=== PATIENT | male | born 1960 | race Caucasian/White ===

== ENCOUNTER 2016-11-22 08:46 | Inpatient (IN) | payer OTHER ==
[2016-11-22 11:48] VITALS: BMI 27.1
--- NOTE | 2016-11-22 12:54 | HP ---
COWS - Scale Resting Pulse: 0= [place] 80 or Below Sweatin= Chills/Flushing Restless Observation: 3= Extraneous Movement Pupil Size: 2= Moderately Dilated Bone or Joint Aches: 2= Severe Diffuse Aches Runny Nose/ Eye Tearin= Runny Nose/Eyes GI Upset > 30mins: 3= Vomiting/Diarrhea Tremor Observation: 2= Slight Tremor Visible Yawning Observation: 2= >3x During Session Anxiety or Irritability: 2=Irritable/Anxious Goose Flesh Skin: 0=Smooth Skin COWS Score: 19 CIWA Score - CIWA Score Nausea/Vomitin Muscle Tremors: 3 Anxiety: 3 Agitation: 3 Paroxysmal Sweats: 2 Orientation: 0-Oriented Tacttile Disturbances: 2-Mild Itch/Numbness/Burn Auditory Disturbances: 2-Mild Harshness/Frighten Visual Disturbances: 2-Mild Sensitivity Headache: 2-Mild CIWA-Ar Total Score: 22 Admission ROS BHS - HPI Chief Complaint: i need help to stop using heroin,alcohol,and cocaine Allergies/Adverse Reactions: Allergies Allergy/AdvReac Type Severity Reaction Status Date / Time No Known Allergies Allergy Verified 11/22/16 11:21 History of Present Illness: this 56 years old with heroin,alcohol,street methadone,alcohol,seeking detox, last treatment [facility] 04/19 completed nicotine dependence weight loss anxiety and depression no significant period of sobriety Exam Limitations: No Limitations - Ebola screening Have you traveled outside of the country in the last 21 days: No Have you had contact with anyone from an Ebola affected area: No Have you been sick,other than usual withdrawal symptoms: No - Review of Systems Constitutional: Chills, Diaphoresis, Loss of Appetite, Malaise, Night Sweats, Changes in sleep, Weakness, Unintentional Wgt. Loss EENT: reports: Tearing, Nose Congestion Respiratory: reports: No Symptoms reported Cardiac: reports: No Symptoms Reported GI: reports: Diarrhea, Nausea, Vomiting, Abdominal cramping : reports: No Symptoms Reported Musculoskeletal: reports: Back Pain, Joint Pain, Muscle Pain, Joint Stiffness Integumentary: reports: Dryness Neuro: reports: Headache, Tremors Endocrine: reports: No Symptoms Reported Hematology: reports: Bleeding Diathesis Psychiatric: reports: Anxious, Depressed Patient History - Patient Medical History Hx Anemia: No Hx Asthma: Yes (on albuterol inhaler) Hx Chronic Obstructive Pulmonary Disease (COPD): No Hx Cancer: No Hx Cardiac Disorders: No Hx Congestive Heart Failure: No Hx Hypertension: No Hx Hypercholesterolemia: No Hx Pacemaker: No HX Cerebrovascular Accident: No Hx Seizures: No Hx Dementia: No Hx Diabetes: No Hx Gastrointestinal Disorders: No Hx Liver Disease: No Hx Genitourinary Disorders: No Hx Sexually Transmitted Disorders: No Hx Renal Disease (ESRD): No Hx Thyroid Disease: No Hx Human Immunodeficiency Virus (HIV): No (last 2015) Hx Hepatitis C: No Hx Depression: No Hx Suicide Attempt: No Hx Schizophrenia: No Other Medical History: no suicidal,no homicidal - Patient Surgical History Past Surgical History: Yes Hx Neurologic Surgery: No Hx Cataract Extraction: No Hx Cardiac Surgery: No Hx Lung Surgery: No Hx Breast Surgery: No Hx Breast Biopsy: No Hx Abdominal Surgery: No Hx Appendectomy: No Hx Cholecystectomy: No Hx Genitourinary Surgery: No Hx Section: No Hx Orthopedic Surgery: Yes (dislocation, left rotator cuff in 2007) Anesthesia Reaction: No - PPD History Previous Implant?: Yes Documented Results: Negative w/o proof Implanted On Prior R Admission?: No PPD to be Administered?: Yes - Smoking Cessation Smoking history: Current every day smoker Have you smoked in the past 12 months: Yes Aproximately how many cigarettes per day: 30 Hx Chewing Tobacco Use: No Initiated information on smoking cessation: Yes 'Breaking Loose' booklet given: 11/22/16 - Substance & Tx. History Hx Alcohol Use: Yes Hx Substance Use: Yes Substance Use Type: Alcohol, Cocaine, Heroin Hx Substance Use Treatment: Yes (2015 [facility] 04/19) - Substances Abused Heroin Route: Inhalation Frequency: Daily Amount used: 20-25 bags Age of first use: 20 Date of Last Use: 11/21/16 Crack Route: Smoking Frequency: Daily Amount used: $300 Age of first use: 32 Date of Last Use: 11/21/16 Alcohol-vodka/beer Route: Oral Frequency: Daily Amount used: 2-3 pts./2-6 pks. Age of first use: 20 Date of Last Use: 11/22/16 street methadone Route: Oral Frequency: 1-3 times last 30 days Amount used: 80 mg. Age of first use: 55 Date of Last Use: 11/21/16 Family Disease History - Family Disease History Family History: Denies Admission Physical Exam [facility] - Vital Signs Vital Signs: Vital Signs - 24 hr 11/22/16 11:45 Temperature 98.5 F Pulse Rate 62 Respiratory 18 Rate Blood Pressure 125/76 - Physical General Appearance: Yes: Moderate Distress, Tremorous, Irritable, Sweating, Anxious HEENTM: Yes: Hearing grossly Normal, Normal ENT Inspection, Pharynx Normal Respiratory: Yes: Lungs Clear, Normal Breath Sounds, No Respiratory Distress Neck: Yes: Within Normal Limits Breast: Yes: Within Normal Limits Cardiology: Yes: Within Normal Limits, Regular Rate, S1, S2 Abdominal: Yes: Within Normal Limits, Normal Bowel Sounds, Non Tender, Flat, Soft Genitourinary: Yes: Within Normal Limits Back: Yes: Within Normal Limits, Normal Inspection, Muscle Spasm Musculoskeletal: Yes: full range of Motion, Back pain, Joint Stiffness, Muscle Pain Extremities: Yes: Normal Capillary Refill, Normal Range of Motion, Tremors Neurological: Yes: secretary administrative assistant II-XII NML intact, Alert, Motor Strength 5/5 Integumentary: Yes: Dry Lymphatic: Yes: Within Normal Limits - Diagnostic (1) Opioid dependence with withdrawal Current Visit: Yes Status: Acute (2) Alcohol dependence with uncomplicated withdrawal Current Visit: Yes Status: Acute (3) Cocaine dependence Current Visit: Yes Status: Acute (4) Anxiety and depression Current Visit: Yes Status: Acute (5) Nicotine dependence Current Visit: Yes Status: Acute (6) Weight loss Current Visit: Yes Status: Chronic (7) Asthma Current Visit: Yes Status: Chronic Cleared for Admission [facility] - Detox or Rehab [facility] Level of Care: Medically Managed Detox Regimen/Protocol: Methadone/Librium [facility] Breath Alcohol Content Breath Alcohol Content: 0 Urine Drug Screen - Results Drug Screen Negative: No Urine Drug Screen Results: RUSSELL-Cocaine, OPI-Opiates, MTD-Methadone
[2016-11-22] MEDS ORDERED: P-EPHED 60MG/TRIPROLIDI 2.5MG TABLET PO PRN (13:06)
[2016-11-22] MEDS ORDERED: MENTHOL/PHENOL 1 EACH UD MM PRN (13:06)
[2016-11-22] MEDS ORDERED: MAG HYDROX/AL HYDROX/SIMETH 30 ML UNIT-DOSE CUP PO PRN (13:06)
[2016-11-22] MEDS ORDERED: chlordiazePOXIDE HCL 25 MG CAPSULE PO PRN (13:06)
[2016-11-22] MEDS ORDERED: NICOTINE POLACRILEX 2 MG GUM BC PRN (13:06)
[2016-11-22] MEDS ORDERED: MAGNESIUM CITRATE 300 ML BOTTLE PO PRN (13:06)
[2016-11-22] MEDS ORDERED: IBUPROFEN 400 MG TABLET (FP) PO PRN (13:06)
[2016-11-22] MEDS ORDERED: guaiFENesin/D-METHORPHAN HB 10 ML UNIT-DOSE CUPS PO PRN (13:06)
[2016-11-22] MEDS ORDERED: MAGNESIUM HYDROX 2400MG/30ML ORAL SUSPENSION 30 ML CUP PO PRN (13:06)
[2016-11-22] MEDS ORDERED: LOPERAMIDE HCL 2 MG CAPSULE PO PRN (13:06)
[2016-11-22] MEDS ORDERED: ACETAMINOPHEN 325 MG TABLET (FP) PO PRN (13:06)
[2016-11-22] MEDS: CYCLOBENZAPRINE HCL 10 MG TABLET (FP) PO PRN (13:44)
[2016-11-22] MEDS ORDERED: chlordiazePOXIDE HCL 25 MG CAPSULE PO ONE (13:45)
[2016-11-22] MEDS ORDERED: METHADONE HCL 10 MG TABLET (FOR DETOX USE ONLY) PO ONE ×2 (13:45→23:00)
[2016-11-22] MEDS: NICOTINE 21 MG/24 HOURS TOPICAL PATCH TD SCH (13:48)
[2016-11-22] MEDS: chlordiazePOXIDE HCL 25 MG CAPSULE PO SCH ×2 (17:57→22:10)
[2016-11-22 17:59] LABS: URINE APPEARANCE CLEAR; URINE BILIRUBIN NEGATIVE (NEGATIVE); URINE BLOOD 1+ (NEGATIVE); URINE COLOR YELLOW; URINE GLUCOSE (UA) NEGATIVE (NEGATIVE); URINE KETONE NEGATIVE (NEGATIVE); URINE LEUK ESTERASE NEGATIVE (NEGATIVE); URINE NITRITE NEGATIVE (NEGATIVE); URINE PROTEIN NEGATIVE (NEGATIVE); URINE UROBILINOGEN NEGATIVE mg/dL (0.2-1.0)
[2016-11-22 19:17] LABS: CALCIUM OXALATE CRYSTALS RARE /hpf (NONE SEEN); URINE MUCUS RARE; URINE RBC 3 /hpf (0-3); URINE WBC 1 /hpf (3-5)
[2016-11-22 20:59] LABS: HIV 1 & 2 AB NEGATIVE; HIV 1 AGp24 NEGATIVE
[2016-11-22] MEDS: THIAMINE HCL 100 MG TABLET (FP) PO SCH (22:09)
[2016-11-22] MEDS: cloNIDine HCL 0.1 MG TABLET PO SCH (22:09)
[2016-11-22] MEDS: diphenhydrAMINE HCL 50 MG CAPSULE PO PRN (22:11)
[2016-11-23] MEDS: chlordiazePOXIDE HCL 25 MG CAPSULE PO SCH ×4 (05:58→22:25)
[2016-11-23] MEDS: CYCLOBENZAPRINE HCL 10 MG TABLET (FP) PO PRN (05:58)
[2016-11-23] MEDS ORDERED: METHADONE HCL 10 MG TABLET (FOR DETOX USE ONLY) PO SCH (10:00)
[2016-11-23] MEDS: PRENATAL VITAMINS W/ FOLIC ACID TABLET (FP) PO SCH (10:08)
[2016-11-23] MEDS: cloNIDine HCL 0.1 MG TABLET PO SCH ×2 (10:08→22:26)
[2016-11-23] MEDS: NICOTINE 21 MG/24 HOURS TOPICAL PATCH TD SCH (10:08)
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
[2016-11-23 10:59] LABS: ALBUMIN 3.7 g/dl (3.4-5.0); ANION GAP 7 (8-16); CALCIUM 8.9 mg/dL (8.5-10.1); CO2 27 mmol/L (21-32); GLUCOSE,RANDOM 86 mg/dL (74-106)
[2016-11-23 11:01] LABS: ALK PHOS 90 U/L (45-117); BILIRUBIN,TOTAL 0.5 mg/dL (0.2-1.0); CREATININE 1.4 mg/dL (0.7-1.3); MCH 31.4 pg (25.7-33.7); MCHC 33.5 g/dl (32.0-35.9); MEAN CELL VOLUME 93.7 fl (80-96); MEAN PLT VOLUME 8.3 fl (7.5-11.1); PLATELET COUNT 278 K/MM3 (134-434); RDW 13.6 % (11.9-15.9); SGOT/AST 20 U/L (15-37); SGPT/ALT 21 U/L (12-78); TOT PROT 7.1 g/dl (6.4-8.2); WHITE BLOOD COUNT 10.9 K/mm3 (4.0-10.0)
--- NOTE | 2016-11-23 15:32 | PN ---
S CIWA - CIWA Score Nausea/Vomitin-Int. Nausea w/Dry Heave Muscle Tremors: 3 Anxiety: 3 Agitation: 1-Slight > Activity Paroxysmal Sweats: 3 Orientation: 0-Oriented Tacttile Disturbances: 2-Mild Itch/Numbness/Burn Auditory Disturbances: 0-None Visual Disturbances: 0-None Headache: 3-Moderate CIWA-Ar Total Score: 19 BHS COWS - Scale Resting Pulse: 0= [place] 80 or Below Sweatin= Chills/Flushing Restless Observation: 1= Difficult to Sit Still Pupil Size: 0= Normal to Room Light Bone or Joint Aches: 2= Severe Diffuse Aches Runny Nose/ Eye Tearin= Nasal Congestion GI Upset > 30mins: 2= Nausea/Diarrhea Tremor Observation of Outstretched Hands: 2= Slight Tremor Visible Yawning Observation: 2= >3x During Session Anxiety or Irritability: 2=Irritable/Anxious Goose Flesh Skin: 0=Smooth Skin COWS Score: 13 BHS Progress Note (SOAP) Subjective: Interrupted sleep, Diarrhea, Stomach Cramping, H/A, Body Aches, Sweating, Tremors. Objective: PT. A & O X 3. NO ACUTE DISTRESS. PT. DENIES CHEST PAIN. 11/23/16 15:29 Vital Signs Temperature 97.6 F 11/23/16 10:00 Pulse Rate 59 L 11/23/16 10:00 Respiratory Rate 19 11/23/16 10:00 Blood Pressure 129/81 11/23/16 10:00 O2 Sat by Pulse Oximetry (%) Laboratory Tests 11/22/16 11/22/16 11/23/16 13:20 15:00 06:00 WBC 10.9 H RBC 4.40 Hgb 13.8 Hct 41.2 MCV 93.7 MCH 31.4 MCHC 33.5 RDW 13.6 Plt Count 278 MPV 8.3 Sodium Potassium Chloride Carbon Dioxide Anion Gap BUN Creatinine Creat Clearance w eGFR Random Glucose Calcium Total Bilirubin AST ALT Alkaline Phosphatase Total Protein Albumin Urine Color Yellow Urine Appearance Clear Urine pH 5.0 Ur Specific [place] >= 1.030 H Urine Protein Negative Urine Glucose (UA) Negative Urine Ketones Negative Urine Blood 1+ H Urine Nitrite Negative Urine Bilirubin Negative Urine Urobilinogen Negative Ur Leukocyte Esterase Negative Urine RBC 3 Urine WBC 1 Calcium Oxalate Crystal Rare Urine Mucus Rare RPR Titer HIV 1&2 Antibody Screen Negative HIV P24 Antigen Negative 11/23/16 11/23/16 06:00 06:00 WBC RBC Hgb Hct MCV MCH MCHC RDW Plt Count MPV Sodium 139 Potassium 4.6 Chloride 105 Carbon Dioxide 27 Anion Gap 7 L BUN 21 H Creatinine 1.4 H Creat Clearance w eGFR 52.81 Random Glucose 86 Calcium 8.9 Total Bilirubin 0.5 AST 20 ALT 21 Alkaline Phosphatase 90 Total Protein 7.1 Albumin 3.7 Urine Color Urine Appearance Urine pH Ur Specific [place] Urine Protein Urine Glucose (UA) Urine Ketones Urine Blood Urine Nitrite Urine Bilirubin Urine Urobilinogen Ur Leukocyte Esterase Urine RBC Urine WBC Calcium Oxalate Crystal Urine Mucus RPR Titer Nonreactive HIV 1&2 Antibody Screen HIV P24 Antigen LABS NOTED. HCV ANTIBODY RESULT PENDING. 11/23/16 15:31 Assessment: 11/23/16 15:30 WITHDRAWAL SYMPTOMS. Plan: CONTINUE DETOX. D/C MAGNESIUM-CONTAINING MEDS.
[2016-11-23] MEDS: THIAMINE HCL 100 MG TABLET (FP) PO SCH (22:23)
[2016-11-23] MEDS: QUEtiapine FUMARATE 50 MG TABLET PO SCH (22:25)
[2016-11-24] MEDS: chlordiazePOXIDE HCL 25 MG CAPSULE PO SCH ×2 (05:46→10:15)
[2016-11-24] MEDS: PRENATAL VITAMINS W/ FOLIC ACID TABLET (FP) PO SCH (10:14)
[2016-11-24] MEDS: cloNIDine HCL 0.1 MG TABLET PO SCH ×2 (10:14→22:10)
[2016-11-24] MEDS: NICOTINE 21 MG/24 HOURS TOPICAL PATCH TD SCH (10:15)
[2016-11-24] MEDS: METHADONE HCL 5 MG TABLET (FOR DETOX USE ONLY) PO SCH (10:15)
--- NOTE | 2016-11-24 15:38 | PN ---
S CIWA - CIWA Score Nausea/Vomitin Muscle Tremors: 4-Moderate,w/Arms Extend Anxiety: 4-Mod. Anxious/Guarded Agitation: 4-Moderately Restless Paroxysmal Sweats: No Perspiration Orientation: 0-Oriented Tacttile Disturbances: 0-None Auditory Disturbances: 0-None Visual Disturbances: 0-None Headache: 1-Very Mild CIWA-Ar Total Score: 16 BHS COWS - Scale Resting Pulse: 0= [place] 80 or Below Sweatin=Flushed/Facial Moisture Restless Observation: 3= Extraneous Movement Pupil Size: 0= Normal to Room Light Bone or Joint Aches: 2= Severe Diffuse Aches Runny Nose/ Eye Tearin= Runny Nose/Eyes GI Upset > 30mins: 3= Vomiting/Diarrhea Tremor Observation of Outstretched Hands: 2= Slight Tremor Visible Yawning Observation: 1= 1-2x During Session Anxiety or Irritability: 2=Irritable/Anxious Goose Flesh Skin: 0=Smooth Skin COWS Score: 17 [facility] Progress Note (SOAP) Subjective: Nausea, sweating, tremor, anxious, interrupted sleep, diarrhea, body aches Objective: 11/24/16 15:36 Last Vital Signs Temp Pulse Resp BP Pulse Ox 96.4 F L 68 20 122/82 11/24/16 10:00 11/24/16 10:00 11/24/16 10:00 11/24/16 10:00 Laboratory Tests 11/22/16 11/22/16 11/23/16 13:20 15:00 06:00 WBC 10.9 H RBC 4.40 Hgb 13.8 Hct 41.2 MCV 93.7 MCH 31.4 MCHC 33.5 RDW 13.6 Plt Count 278 MPV 8.3 Sodium Potassium Chloride Carbon Dioxide Anion Gap BUN Creatinine Creat Clearance w eGFR Random Glucose Calcium Total Bilirubin AST ALT Alkaline Phosphatase Total Protein Albumin Urine Color Yellow Urine Appearance Clear Urine pH 5.0 Ur Specific [place] >= 1.030 H Urine Protein Negative Urine Glucose (UA) Negative Urine Ketones Negative Urine Blood 1+ H Urine Nitrite Negative Urine Bilirubin Negative Urine Urobilinogen Negative Ur Leukocyte Esterase Negative Urine RBC 3 Urine WBC 1 Calcium Oxalate Crystal Rare Urine Mucus Rare RPR Titer Hepatitis C Antibody HIV 1&2 Antibody Screen Negative HIV P24 Antigen Negative 11/23/16 11/23/16 11/23/16 06:00 06:00 06:00 WBC RBC Hgb Hct MCV MCH MCHC RDW Plt Count MPV Sodium 139 Potassium 4.6 Chloride 105 Carbon Dioxide 27 Anion Gap 7 L BUN 21 H Creatinine 1.4 H Creat Clearance w eGFR 52.81 Random Glucose 86 Calcium 8.9 Total Bilirubin 0.5 AST 20 ALT 21 Alkaline Phosphatase 90 Total Protein 7.1 Albumin 3.7 Urine Color Urine Appearance Urine pH Ur Specific [place] Urine Protein Urine Glucose (UA) Urine Ketones Urine Blood Urine Nitrite Urine Bilirubin Urine Urobilinogen Ur Leukocyte Esterase Urine RBC Urine WBC Calcium Oxalate Crystal Urine Mucus RPR Titer Nonreactive Hepatitis C Antibody <0.1 HIV 1&2 Antibody Screen HIV P24 Antigen Labs noted: BUN 21, serum creatinine 1.4, UA: 1+ blood Assessment: 11/24/16 15:38 Withdrawal symptoms Noted with prerenal azotemia Plan: Continue detox Prerenal azotemia: encouraged to drink lots of water, water pitcher ordered, repeat BMP Microscopic hematuria: repeat UA
[2016-11-24] MEDS: chlordiazePOXIDE 5 MG CAPSULE PO SCH ×2 (17:30→22:11)
[2016-11-24] MEDS ORDERED: ZOLPIDEM TARTRATE 5 MG TABLET PO PRN (22:00)
[2016-11-24] MEDS: QUEtiapine FUMARATE 50 MG TABLET PO SCH (22:10)
[2016-11-24] MEDS: THIAMINE HCL 100 MG TABLET (FP) PO SCH (22:11)
[2016-11-25] MEDS: chlordiazePOXIDE 5 MG CAPSULE PO SCH ×2 (06:00→10:06)
[2016-11-25] MEDS: cloNIDine HCL 0.1 MG TABLET PO SCH ×2 (10:06→22:07)
[2016-11-25] MEDS: PRENATAL VITAMINS W/ FOLIC ACID TABLET (FP) PO SCH (10:06)
[2016-11-25] MEDS: METHADONE HCL 5 MG TABLET (FOR DETOX USE ONLY) PO SCH (10:06)
[2016-11-25] MEDS: NICOTINE 21 MG/24 HOURS TOPICAL PATCH TD SCH (10:06)
[2016-11-25 10:11] LABS: ANION GAP 7 (8-16); CALCIUM 8.7 mg/dL (8.5-10.1); CO2 27 mmol/L (21-32); GLUCOSE,RANDOM 97 mg/dL (74-106)
[2016-11-25] MEDS ORDERED: ALBUTEROL SO4 6.7 GM HFA INHALER IH PRN (11:06)
--- NOTE | 2016-11-25 11:09 | PN ---
BHS Progress Note (SOAP) Subjective: Sweating,interrupted sleep,restless Objective: 11/25/16 11:08 Vital Signs - 8 hr 11/25/16 11/25/16 11/25/16 03:32 06:51 09:27 Temperature 97.7 F 96.0 F L Pulse Rate 64 59 L Respiratory 18 18 18 Rate Blood Pressure 124/84 125/82 Laboratory Tests 11/22/16 11/22/16 11/23/16 13:20 15:00 06:00 WBC 10.9 H RBC 4.40 Hgb 13.8 Hct 41.2 MCV 93.7 MCH 31.4 MCHC 33.5 RDW 13.6 Plt Count 278 MPV 8.3 Sodium Potassium Chloride Carbon Dioxide Anion Gap BUN Creatinine Creat Clearance w eGFR Random Glucose Calcium Total Bilirubin AST ALT Alkaline Phosphatase Total Protein Albumin Urine Color Yellow Urine Appearance Clear Urine pH 5.0 Ur Specific [place] >= 1.030 H Urine Protein Negative Urine Glucose (UA) Negative Urine Ketones Negative Urine Blood 1+ H Urine Nitrite Negative Urine Bilirubin Negative Urine Urobilinogen Negative Ur Leukocyte Esterase Negative Urine RBC 3 Urine WBC 1 Calcium Oxalate Crystal Rare Urine Mucus Rare RPR Titer Hepatitis C Antibody HIV 1&2 Antibody Screen Negative HIV P24 Antigen Negative 11/23/16 11/23/16 11/23/16 06:00 06:00 06:00 WBC RBC Hgb Hct MCV MCH MCHC RDW Plt Count MPV Sodium 139 Potassium 4.6 Chloride 105 Carbon Dioxide 27 Anion Gap 7 L BUN 21 H Creatinine 1.4 H Creat Clearance w eGFR 52.81 Random Glucose 86 Calcium 8.9 Total Bilirubin 0.5 AST 20 ALT 21 Alkaline Phosphatase 90 Total Protein 7.1 Albumin 3.7 Urine Color Urine Appearance Urine pH Ur Specific [place] Urine Protein Urine Glucose (UA) Urine Ketones Urine Blood Urine Nitrite Urine Bilirubin Urine Urobilinogen Ur Leukocyte Esterase Urine RBC Urine WBC Calcium Oxalate Crystal Urine Mucus RPR Titer Nonreactive Hepatitis C Antibody <0.1 HIV 1&2 Antibody Screen HIV P24 Antigen 11/25/16 06:30 WBC RBC Hgb Hct MCV MCH MCHC RDW Plt Count MPV Sodium 140 Potassium 4.0 Chloride 106 Carbon Dioxide 27 Anion Gap 7 L BUN 15 D Creatinine 1.0 D Creat Clearance w eGFR Random Glucose 97 Calcium 8.7 Total Bilirubin AST ALT Alkaline Phosphatase Total Protein Albumin Urine Color Urine Appearance Urine pH Ur Specific [place] Urine Protein Urine Glucose (UA) Urine Ketones Urine Blood Urine Nitrite Urine Bilirubin Urine Urobilinogen Ur Leukocyte Esterase Urine RBC Urine WBC Calcium Oxalate Crystal Urine Mucus RPR Titer Hepatitis C Antibody HIV 1&2 Antibody Screen HIV P24 Antigen labs noted Assessment: 11/25/16 11:09 Withdrawal sx. Plan: Continue detox
--- NOTE | 2016-11-25 12:03 | EKG ---
Test Reason : Blood Pressure : / mmHG Vent. Rate : 059 BPM Atrial Rate : 059 BPM P-R Int : 180 ms QRS Dur : 088 ms QT Int : 402 ms P-R-T Axes : 059 040 040 degrees QTc Int : 397 ms SINUS BRADYCARDIA OTHERWISE NORMAL ECG NO PREVIOUS ECGS AVAILABLE Confirmed by ADARSH WARE MD ([id number]) on 11/25/2016 12:03:27 PM Referred By: Confirmed By:ADARSH WARE MD
[2016-11-25] MEDS: chlordiazePOXIDE HCL 10 MG CAPSULE PO SCH ×2 (17:18→22:07)
[2016-11-25 17:39] LABS: URINE APPEARANCE CLEAR; URINE BILIRUBIN NEGATIVE (NEGATIVE); URINE BLOOD NEGATIVE (NEGATIVE); URINE COLOR LTYELLOW; URINE GLUCOSE (UA) NEGATIVE (NEGATIVE); URINE KETONE NEGATIVE (NEGATIVE); URINE LEUK ESTERASE NEGATIVE (NEGATIVE); URINE NITRITE NEGATIVE (NEGATIVE); URINE PROTEIN NEGATIVE (NEGATIVE); URINE UROBILINOGEN NEGATIVE mg/dL (0.2-1.0)
[2016-11-25] MEDS: QUEtiapine FUMARATE 50 MG TABLET PO SCH (22:07)
[2016-11-25] MEDS: diphenhydrAMINE HCL 50 MG CAPSULE PO PRN (22:07)
[2016-11-25] MEDS: THIAMINE HCL 100 MG TABLET (FP) PO SCH (22:58)
[2016-11-26] MEDS: chlordiazePOXIDE HCL 10 MG CAPSULE PO SCH ×2 (06:13→10:09)
[2016-11-26] MEDS ORDERED: METHADONE HCL 10 MG TABLET (FOR DETOX USE ONLY) PO SCH (10:00)
[2016-11-26] MEDS: PRENATAL VITAMINS W/ FOLIC ACID TABLET (FP) PO SCH (10:08)
[2016-11-26] MEDS: NICOTINE 21 MG/24 HOURS TOPICAL PATCH TD SCH (10:08)
[2016-11-26] MEDS: cloNIDine HCL 0.1 MG TABLET PO SCH ×2 (10:09→22:39)
--- NOTE | 2016-11-26 10:32 | PN ---
BHS Progress Note (SOAP) Subjective: Sweating,interrupted sleep,restless. Objective: 11/26/16 10:31 Vital Signs - 8 hr 11/26/16 11/26/16 11/26/16 03:28 06:46 09:24 Temperature 97.3 F L 97.2 F L Pulse Rate 62 61 Respiratory 18 16 16 Rate Blood Pressure 117/79 127/78 Assessment: 11/26/16 10:31 Withdrawal sx. Plan: Continue detox
[2016-11-26] MEDS: RANITIDINE HCL 150 MG TABLET (FP) PO SCH (21:10)
[2016-11-26] MEDS: THIAMINE HCL 100 MG TABLET (FP) PO SCH (22:39)
[2016-11-26] MEDS: QUEtiapine FUMARATE 50 MG TABLET PO SCH (22:39)
[2016-11-26] MEDS: diphenhydrAMINE HCL 50 MG CAPSULE PO PRN (22:39)
[2016-11-27] MEDS ORDERED: METHADONE HCL 5 MG TABLET (FOR DETOX USE ONLY) PO SCH (06:00)
[2016-11-27 09:41] VITALS: BP 102/69; PULSE 85; TEMP 97.8
[2016-11-27] MEDS: RANITIDINE HCL 150 MG TABLET (FP) PO SCH (10:09)
[2016-11-27] MEDS: NICOTINE 21 MG/24 HOURS TOPICAL PATCH TD SCH (10:09)
[2016-11-27] MEDS: PRENATAL VITAMINS W/ FOLIC ACID TABLET (FP) PO SCH (10:09)
[2016-11-27] MEDS: cloNIDine HCL 0.1 MG TABLET PO SCH (10:09)
--- NOTE | 2016-11-27 14:15 | DS ---
[facility] Detox Discharge Summary Admission Date: 11/22/16 Discharge Date: 11/27/16 - History Present History: Alcohol Dependence, Cocaine Dependence, Opioid Dependence Pertinent Past History: Asthma - Physical Exam Results Vital Signs: Vital Signs Temperature 97.8 F 11/27/16 09:41 Pulse Rate 85 11/27/16 09:41 Respiratory Rate 18 11/27/16 09:41 Blood Pressure 102/69 11/27/16 09:41 O2 Sat by Pulse Oximetry (%) Pertinent Admission Physical Exam Findings: Withdrawal sx. Laboratory Last Values WBC 10.9 K/mm3 (4.0-10.0) H 11/23/16 06:00 RBC 4.40 M/mm3 (4.00-5.60) 11/23/16 06:00 Hgb 13.8 GM/dL (11.7-16.9) 11/23/16 06:00 Hct 41.2 % (35.4-49) 11/23/16 06:00 MCV 93.7 fl (80-96) 11/23/16 06:00 MCH 31.4 pg (25.7-33.7) 11/23/16 06:00 MCHC 33.5 g/dl (32.0-35.9) 11/23/16 06:00 RDW 13.6 % (11.9-15.9) 11/23/16 06:00 Plt Count 278 K/MM3 (134-434) 11/23/16 06:00 MPV 8.3 fl (7.5-11.1) 11/23/16 06:00 Sodium 140 mmol/L (136-145) 11/25/16 06:30 Potassium 4.0 mmol/L (3.5-5.1) 11/25/16 06:30 Chloride 106 mmol/L (98-107) 11/25/16 06:30 Carbon Dioxide 27 mmol/L (21-32) 11/25/16 06:30 Anion Gap 7 (8-16) L 11/25/16 06:30 BUN 15 mg/dL (7-18) D 11/25/16 06:30 Creatinine 1.0 mg/dL (0.7-1.3) D 11/25/16 06:30 Creat Clearance w eGFR 52.81 (>60) 11/23/16 06:00 Random Glucose 97 mg/dL (74-106) 11/25/16 06:30 Calcium 8.7 mg/dL (8.5-10.1) 11/25/16 06:30 Total Bilirubin 0.5 mg/dL (0.2-1.0) 11/23/16 06:00 AST 20 U/L (15-37) 11/23/16 06:00 ALT 21 U/L (12-78) 11/23/16 06:00 Alkaline Phosphatase 90 U/L (45-117) 11/23/16 06:00 Total Protein 7.1 g/dl (6.4-8.2) 11/23/16 06:00 Albumin 3.7 g/dl (3.4-5.0) 11/23/16 06:00 Urine Color Lty[place] 11/25/16 13:10 Urine Appearance Clear 11/25/16 13:10 Urine pH 5.0 (5.0-8.0) 11/25/16 13:10 Ur Specific [place] 1.015 (1.005-1.025) 11/25/16 13:10 Urine Protein Negative (NEGATIVE) 11/25/16 13:10 Urine Glucose (UA) Negative (NEGATIVE) 11/25/16 13:10 Urine Ketones Negative (NEGATIVE) 11/25/16 13:10 Urine Blood Negative (NEGATIVE) 11/25/16 13:10 Urine Nitrite Negative (NEGATIVE) 11/25/16 13:10 Urine Bilirubin Negative (NEGATIVE) 11/25/16 13:10 Urine Urobilinogen Negative mg/dL (0.2-1.0) 11/25/16 13:10 Ur Leukocyte Esterase Negative (NEGATIVE) 11/25/16 13:10 Urine RBC 3 /hpf (0-3) 11/22/16 15:00 Urine WBC 1 /hpf (3-5) 11/22/16 15:00 Calcium Oxalate Crystal Rare /hpf (NONE SEEN) 11/22/16 15:00 Urine Mucus Rare 11/22/16 15:00 RPR Titer Nonreactive (NONREACTIVE) 11/23/16 06:00 Hepatitis C Antibody <0.1 s/co ratio (0.0-0.9) 11/23/16 06:00 HIV 1&2 Antibody Screen Negative 11/22/16 13:20 HIV P24 Antigen Negative 11/22/16 13:20 labs noted - Treatment Hospital Course: Detox Protocol Followed, Detoxed Safely, Responded well, Discharged Condition Good, Rehab Referral Accepted Patient has Accepted a Rehab Referral to: [facility] - Medication Discharge Medications: Ambulatory Orders Albuterol Sulfate Inhaler - [Ventolin Hfa Inhaler -] 2 inh PO Q4H PRN 11/22/16 Quetiapine Fumarate [Seroquel -] 50 mg PO HS #30 tablet 11/23/16 - Diagnosis (1) Alcohol dependence with uncomplicated withdrawal Current Visit: Yes Status: Acute (2) Cocaine dependence Current Visit: Yes Status: Acute Qualifiers: Substance use status: uncomplicated Qualified Code(s): F14.20 - Cocaine dependence, uncomplicated (3) Insomnia Current Visit: Yes Status: Acute (4) Nicotine dependence Current Visit: Yes Status: Acute Qualifiers: Nicotine product type: cigarettes Substance use status: uncomplicated Qualified Code(s): F17.210 - Nicotine dependence, cigarettes, uncomplicated (5) Opioid dependence with withdrawal Current Visit: Yes Status: Acute (6) Substance induced mood disorder Current Visit: Yes Status: Acute (7) Asthma Current Visit: Yes Status: Chronic Qualifiers: Asthma severity: mild intermittent Asthma complication type: uncomplicated Qualified Code(s): J45.20 - Mild intermittent asthma, uncomplicated - AMA Did Patient Leave Against Medical Advice: No
== END 2016-11-27 11:20 | disposition home or self-care (01) | DRG 897 ==
LOC: YASAS 08:46 → Y3N 12:21
PROVIDERS: ADMIT Internal Medicine Addiction Medicine; ATTEND Internal Medicine Addiction Medicine
PROC: HZ2ZZZZ Detoxification Services for Substance Abuse Treatment (ICD-10-PCS; principal; 2016-11-22)
DX: F11.23 Opioid dependence with withdrawal (principal); F14.20 Cocaine dependence, uncomplicated; F10.230 Alcohol dependence with withdrawal, uncomplicated; F17.210 Nicotine dependence, cigarettes, uncomplicated; F19.24 Other psychoactive substance dependence with psychoactive substance-induced mood disorder; G47.00 Insomnia, unspecified; J45.20 Mild intermittent asthma, uncomplicated; R79.89 Other specified abnormal findings of blood chemistry; Z87.898 Personal history of other specified conditions
CPT/HCPCS: 36415; 80048; 80053; 81003; 81015; 85027; 86593; 86803; 87389; 93005; 93010

== ENCOUNTER 2017-10-15 12:58 | Inpatient (IN) | payer OTHER ==
[2017-10-15] MEDS ORDERED: NICOTINE POLACRILEX 4 MG GUM BUC PRN (13:51)
[2017-10-15] MEDS ORDERED: ACETAMINOPHEN 325 MG TABLET (FP) PO PRN (13:51)
[2017-10-15] MEDS ORDERED: LOPERAMIDE HCL 2 MG CAPSULE PO PRN (13:51)
[2017-10-15] MEDS ORDERED: MAGNESIUM CITRATE 300 ML BOTTLE PO PRN (13:51)
[2017-10-15] MEDS ORDERED: MENTHOL/PHENOL 1 EACH UD MM PRN (13:51)
[2017-10-15] MEDS ORDERED: MAG HYDROX/AL HYDROX/SIMETH 30 ML UNIT-DOSE CUP PO PRN (13:51)
[2017-10-15] MEDS ORDERED: MAGNESIUM HYDROX 2400MG/30ML ORAL SUSPENSION 30 ML CUP PO PRN (13:51)
[2017-10-15] MEDS ORDERED: P-EPHED 60MG/TRIPROLIDI 2.5MG TABLET PO PRN (13:51)
[2017-10-15] MEDS ORDERED: IBUPROFEN 400 MG TABLET (FP) PO PRN (13:51)
[2017-10-15] MEDS ORDERED: chlordiazePOXIDE HCL 25 MG CAPSULE PO PRN (13:51)
[2017-10-15] MEDS ORDERED: guaiFENesin/D-METHORPHAN HB 10 ML UNIT-DOSE CUPS PO PRN (13:51)
--- NOTE | 2017-10-15 13:51 | HP ---
COWS - Scale Resting Pulse: 1= [place] 81-100 Sweatin= Chills/Flushing Restless Observation: 1= Difficult to Sit Still Pupil Size: 1= Pupils >than Normal Bone or Joint Aches: 2= Severe Diffuse Aches Runny Nose/ Eye Tearin= Nasal Congestion GI Upset > 30mins: 2= Nausea/Diarrhea Tremor Observation: 2= Slight Tremor Visible Yawning Observation: 2= >3x During Session Anxiety or Irritability: 2=Irritable/Anxious Goose Flesh Skin: 0=Smooth Skin COWS Score: 15 Admission ROS S - [facility] Chief Complaint: opiate withdrawal sx Allergies/Adverse Reactions: Allergies Allergy/AdvReac Type Severity Reaction Status Date / Time No Known Allergies Allergy Verified 10/15/17 13:52 History of Present Illness: 57 years old male with long history of opiate nicotine dependence has asthma weight loss migraine headache no treatment umbilical hernia x 2 years, right foot surgically repaired 08/2017 is admitted to detox Exam Limitations: No Limitations - Ebola screening Have you traveled outside of the country in the last 21 days: No Have you had contact with anyone from an Ebola affected area: No Have you been sick,other than usual withdrawal symptoms: No Do you have a fever: No - Review of Systems Constitutional: Loss of Appetite, Changes in sleep, Unintentional Wgt. Loss, Unexplained wgt Loss EENT: reports: No Symptoms Reported Respiratory: reports: No Symptoms reported Cardiac: reports: No Symptoms Reported GI: reports: Nausea, Poor Appetite, Poor Fluid Intake, Abdominal cramping : reports: No Symptoms Reported Musculoskeletal: reports: Back Pain, Joint Pain, Muscle Pain, Neck Pain Integumentary: reports: No Symptoms Reported Neuro: reports: Tremors Endocrine: reports: No Symptoms Reported Hematology: reports: No Symptoms Reported Psychiatric: reports: Judgement Intact, Orientated x3, Anxious, Depressed Other Systems: Reviewed and Negative Patient History - Patient Medical History Hx Anemia: No Hx Asthma: Yes (on albuterol inhaler) Hx Chronic Obstructive Pulmonary Disease (COPD): No Hx Cancer: No Hx Cardiac Disorders: No Hx Congestive Heart Failure: No Hx Hypertension: No Hx Hypercholesterolemia: No Hx Pacemaker: No HX Cerebrovascular Accident: No Hx Seizures: No Hx Dementia: No Hx Diabetes: No Hx Gastrointestinal Disorders: No Hx Liver Disease: No Hx Genitourinary Disorders: No Hx Sexually Transmitted Disorders: No Hx Renal Disease (ESRD): No Hx Thyroid Disease: No Hx Human Immunodeficiency Virus (HIV): No (last 2015) Hx Hepatitis C: No Hx Depression: Yes Hx Suicide Attempt: No Hx Bipolar Disorder: No Hx Schizophrenia: No - Patient Surgical History Past Surgical History: Yes Hx Neurologic Surgery: No Hx Cataract Extraction: No Hx Cardiac Surgery: No Hx Lung Surgery: No Hx Breast Surgery: No Hx Breast Biopsy: No Hx Abdominal Surgery: No Hx Appendectomy: No Hx Cholecystectomy: No Hx Genitourinary Surgery: No Hx Orthopedic Surgery: Yes (dislocation, left rotator cuff in 2007) Anesthesia Reaction: No (right foot 08/2017) - PPD History Previous Implant?: Yes Documented Results: Negative w/proof Implanted On Prior R Admission?: Yes Date: 11/24/16 PPD to be Administered?: No - Smoking Cessation Smoking history: Current every day smoker Have you smoked in the past 12 months: Yes Aproximately how many cigarettes per day: 20 Cigars Per Day: 0 Hx Chewing Tobacco Use: No Initiated information on smoking cessation: Yes 'Breaking Loose' booklet given: 10/15/17 - Substance & Tx. History Hx Alcohol Use: No Hx Substance Use: Yes Substance Use Type: Opiates Hx Substance Use Treatment: Yes (2016 [facility]) - Substances Abused Heroin Route: Inhalation Frequency: Daily Amount used: 15-20 bags Age of first use: 47 Date of Last Use: 10/15/17 Crack Route: Smoking Frequency: Daily Amount used: $300 Age of first use: 56 Date of Last Use: 10/15/17 street methadone Route: Oral Frequency: 1-3 times last 30 days Amount used: 50 mg. Age of first use: 57 Date of Last Use: 10/12/17 Family Disease History - Family Disease History Family Disease History: [place]: Father (), Mother (), Other: Father , Mother Admission Physical Exam BHS - Physical General Appearance: Yes: Within Normal Limits, Mild Distress, Thin, Tremorous, Irritable, Sweating, Anxious HEENTM: Yes: Hearing grossly Normal, Normocephalic, Normal Voice Respiratory: Yes: Chest Non-Tender, No Respiratory Distress, No Accessory Muscle Use, Wheezing, Expiration Neck: Yes: Supple, Trachea in good position Breast: Yes: Breasts Symetrical, No Discharge Cardiology: Yes: Regular Rhythm, S1, S2, Bradycardia Abdominal: Yes: Non Tender, Flat, Decreased BS, Hernia Genitourinary: Yes: Within Normal Limits Back: Yes: Normal Inspection Musculoskeletal: Yes: full range of Motion, Gait Steady, Back pain, Muscle Pain Extremities: Yes: Non-Tender, Tremors Neurological: Yes: Fully Oriented, Alert, Motor Strength 5/5, Normal Response, Depressed Affect Integumentary: Yes: Warm Lymphatic: Yes: Within Normal Limits - Diagnostic (1) Constipation Current Visit: Yes Status: Chronic Qualifiers: Constipation type: slow transit constipation Qualified Code(s): K59.01 - Slow transit constipation (2) Opioid dependence with withdrawal Current Visit: Yes Status: Acute (3) Asthma Current Visit: Yes Status: Chronic Qualifiers: Asthma severity: mild Asthma persistence: intermittent Asthma complication type: uncomplicated Qualified Code(s): J45.20 - Mild intermittent asthma, uncomplicated (4) Weight loss Current Visit: Yes Status: Acute Cleared for Admission S - Detox or Rehab [facility] Level of Care: Medically Managed Detox Regimen/Protocol: Methadone S Breath Alcohol Content Breath Alcohol Content: 0 Urine Drug Screen - Control Is Test Valid: Yes
[2017-10-15 14:06] VITALS: BMI 24.6
[2017-10-15] MEDS ORDERED: ALBUTEROL SO4 18 GM HFA INHALER IH PRN (14:10)
[2017-10-15] MEDS ORDERED: METHADONE HCL 10 MG TABLET (FOR DETOX USE ONLY) PO ONE ×2 (15:15→23:00)
[2017-10-15] MEDS: DOCUSATE SODIUM 100 MG CAPSULE (FP) PO SCH ×2 (15:54→22:19)
[2017-10-15] MEDS: NICOTINE 21 MG/24 HOURS TOPICAL PATCH TD SCH (15:54)
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
[2017-10-15] MEDS: chlordiazePOXIDE HCL 25 MG CAPSULE PO SCH ×2 (17:20→22:19)
[2017-10-15 18:24] LABS: URINE APPEARANCE CLEAR; URINE BILIRUBIN NEGATIVE (<2.0 mg/dL); URINE COLOR YELLOW; URINE GLUCOSE (UA) NEGATIVE (NEGATIVE); URINE KETONE NEGATIVE (NEGATIVE); URINE LEUK ESTERASE NEGATIVE (NEGATIVE); URINE NITRITE NEGATIVE (NEGATIVE); URINE PROTEIN NEGATIVE (NEGATIVE)
[2017-10-15] MEDS: SENNOSIDES 8.6MG TABLET (FP) PO SCH (22:19)
[2017-10-15] MEDS: THIAMINE HCL 100 MG TABLET (FP) PO SCH (22:19)
[2017-10-16] MEDS: chlordiazePOXIDE HCL 25 MG CAPSULE PO SCH ×2 (05:45→10:06)
[2017-10-16] MEDS: DOCUSATE SODIUM 100 MG CAPSULE (FP) PO SCH ×3 (06:45→22:23)
[2017-10-16] MEDS ORDERED: METHADONE HCL 10 MG TABLET (FOR DETOX USE ONLY) PO SCH (10:00)
[2017-10-16] MEDS: PRENATAL VITAMINS W/ FOLIC ACID TABLET (FP) PO SCH (10:05)
[2017-10-16] MEDS: NICOTINE 21 MG/24 HOURS TOPICAL PATCH TD SCH (10:06)
[2017-10-16 10:17] LABS: HEMATOCRIT 39.4 % (35.4-49); HEMOGLOBIN 13.3 GM/dL (11.7-16.9); MCH 31.9 pg (25.7-33.7); MCHC 33.8 g/dl (32.0-35.9); MEAN CELL VOLUME 94.3 fl (80-96); MEAN PLT VOLUME 7.8 fl (7.5-11.1); PLATELET COUNT 317 K/MM3 (134-434); RBC 4.18 M/mm3 (4.00-5.60); RDW 13.1 % (11.9-15.9); WHITE BLOOD COUNT 9.4 K/mm3 (4.0-10.0)
[2017-10-16 10:47] LABS: CHLORIDE 105 mmol/L (98-107); POTASSIUM 4.8 mmol/L (3.5-5.1); SODIUM 139 mmol/L (136-145)
--- NOTE | 2017-10-16 11:16 | EKG ---
Test Reason : Blood Pressure : / mmHG Vent. Rate : 056 BPM Atrial Rate : 056 BPM P-R Int : 192 ms QRS Dur : 094 ms QT Int : 408 ms P-R-T Axes : 053 035 032 degrees QTc Int : 393 ms SINUS BRADYCARDIA OTHERWISE NORMAL ECG WHEN COMPARED WITH ECG OF 22-NOV-2016 12:52, NO SIGNIFICANT CHANGE WAS FOUND Confirmed by ADARSH WARE MD ([id number]) on 10/16/2017 11:16:00 AM Referred By: Confirmed By:ADARSH WARE MD
[2017-10-16 11:17] LABS: ALBUMIN 3.5 g/dl (3.4-5.0); ALK PHOS 74 U/L (45-117); ANION GAP 7 (8-16); BILIRUBIN,TOTAL 0.2 mg/dL (0.2-1.0); BLOOD UREA NITROGEN 16 mg/dL (7-18); CALCIUM 9.1 mg/dL (8.5-10.1); CO2 27 mmol/L (21-32); CREATININE 1.2 mg/dL (0.7-1.3); GLUCOSE,RANDOM 120 mg/dL (74-106); SGOT/AST 19 U/L (15-37); SGPT/ALT 28 U/L (12-78)
--- NOTE | 2017-10-16 11:44 | PN ---
S COWS - Scale Resting Pulse: 0= [place] 80 or Below Sweatin= Chills/Flushing Restless Observation: 0= Sits Still Pupil Size: 0= Normal to Room Light Bone or Joint Aches: 2= Severe Diffuse Aches Runny Nose/ Eye Tearin= Nasal Congestion GI Upset > 30mins: 2= Nausea/Diarrhea Tremor Observation of Outstretched Hands: 2= Slight Tremor Visible Yawning Observation: 1= 1-2x During Session Anxiety or Irritability: 2=Irritable/Anxious Goose Flesh Skin: 3=Piloerection COWS Score: 14 S Progress Note (SOAP) Subjective: Tremors, Interrupted Sleep, Constipation, Nausea, H/A, Body Aches, Fatigue. Objective: PATIENT A & O X 3, OBSERVED AMBULATING ON UNIT. NO ACUTE DISTRESS. 10/16/17 11:40 Vital Signs Temperature 97.1 F L 10/16/17 09:20 Pulse Rate 53 L 10/16/17 09:20 Respiratory Rate 18 10/16/17 09:20 Blood Pressure 143/92 10/16/17 09:20 O2 Sat by Pulse Oximetry (%) Laboratory Tests 10/15/17 10/16/17 10/16/17 18:02 08:50 08:50 WBC 9.4 RBC 4.18 Hgb 13.3 Hct 39.4 MCV 94.3 MCH 31.9 MCHC 33.8 RDW 13.1 Plt Count 317 MPV 7.8 Sodium 139 Potassium 4.8 Chloride 105 Carbon Dioxide 27 Anion Gap 7 L BUN 16 Creatinine 1.2 Creat Clearance w eGFR > 60 Random Glucose 120 H D Calcium 9.1 Total Bilirubin 0.2 D AST 19 ALT 28 D Alkaline Phosphatase 74 Total Protein 7.0 Albumin 3.5 Urine Color Yellow Urine Appearance Clear Urine pH 6.0 Ur Specific [place] 1.026 Urine Protein Negative Urine Glucose (UA) Negative Urine Ketones Negative Urine Blood Negative Urine Nitrite Negative Urine Bilirubin Negative Urine Urobilinogen 2.0 Ur Leukocyte Esterase Negative LABS NOTED. RPR, HIC AB, HCV AB RESULTS PENDING. 10/16/17 11:42 Assessment: 10/16/17 11:41 WITHDRAWAL SYMPTOMS. Plan: CONTINUE DETOX. LIBRIUM DETOX REGIMEN ORDERED ON ADMISSION (ALONG WITH METHADONE REGIMEN) PART OF PATIENT'S OVERALL DETOX REGIMEN. HOWEVER, PATIENT DENEIS ANY ALCOHOL USE PRIOR TO ADMISSION FOR DETOX AND NO ALCOHOL USE NOTED ON ADMISSION ASSESSMENT. LIBRIUM DETOX REGIMEN D/C'D.
[2017-10-16] MEDS ORDERED: chlordiazePOXIDE HCL 25 MG CAPSULE PO SCH (17:00)
--- NOTE | 2017-10-16 19:18 | PN ---
[facility] Progress Note Note: Psychiatry Attending's note : Called by pharmacist. Issue : order for seroquel. As mentioned in treatment plan of 10/14/17. Chart reviewed.No complaint of insomnia. Noted pulse of 57.Slowing.Seroquel held. Will follow in AM.
[2017-10-16] MEDS: diazePAM 5 MG TABLET PO PRN (22:23)
[2017-10-16] MEDS: THIAMINE HCL 100 MG TABLET (FP) PO SCH (22:23)
[2017-10-16] MEDS: SENNOSIDES 8.6MG TABLET (FP) PO SCH (22:23)
[2017-10-17] MEDS: DOCUSATE SODIUM 100 MG CAPSULE (FP) PO SCH ×3 (06:07→21:53)
[2017-10-17] MEDS: diazePAM 5 MG TABLET PO PRN ×3 (06:07→21:51)
[2017-10-17] MEDS: METHADONE HCL 5 MG TABLET (FOR DETOX USE ONLY) PO SCH (10:11)
[2017-10-17] MEDS: PRENATAL VITAMINS W/ FOLIC ACID TABLET (FP) PO SCH (10:11)
[2017-10-17] MEDS: NICOTINE 21 MG/24 HOURS TOPICAL PATCH TD SCH (10:12)
[2017-10-17] MEDS ORDERED: TRIMETHOBENZAMIDE HCL 200MG/2ML INJ IM PRN (13:24)
--- NOTE | 2017-10-17 15:43 | PN ---
[facility] COWS - Scale Resting Pulse: 0= [place] 80 or Below Sweatin= No chills or Flushing Restless Observation: 1= Difficult to Sit Still Pupil Size: 0= Normal to Room Light Bone or Joint Aches: 0= None Runny Nose/ Eye Tearin= Nasal Congestion GI Upset > 30mins: 2= Nausea/Diarrhea Tremor Observation of Outstretched Hands: 0= None Yawning Observation: 2= >3x During Session Anxiety or Irritability: 2=Irritable/Anxious Goose Flesh Skin: 3=Piloerection COWS Score: 11 BHS Progress Note (SOAP) Subjective: Stomach Cramping, Diarrhea, Vomiting, Fatigue. Objective: PATIENT A & O X 3, OBSERVED AMBULATING ON UNIT. NO ACUTE DISTRESS. 10/17/17 15:41 Vital Signs Temperature 99.5 F 10/17/17 13:51 Pulse Rate 65 10/17/17 13:51 Respiratory Rate 18 10/17/17 13:51 Blood Pressure 122/76 10/17/17 13:51 O2 Sat by Pulse Oximetry (%) Laboratory Tests 10/15/17 10/15/17 10/16/17 11:30 18:02 08:50 WBC 9.4 RBC 4.18 Hgb 13.3 Hct 39.4 MCV 94.3 MCH 31.9 MCHC 33.8 RDW 13.1 Plt Count 317 MPV 7.8 Sodium Potassium Chloride Carbon Dioxide Anion Gap BUN Creatinine Creat Clearance w eGFR Random Glucose Calcium Total Bilirubin AST ALT Alkaline Phosphatase Total Protein Albumin Urine Color Yellow Urine Appearance Clear Urine pH 6.0 Ur Specific [place] 1.026 Urine Protein Negative Urine Glucose (UA) Negative Urine Ketones Negative Urine Blood Negative Urine Nitrite Negative Urine Bilirubin Negative Urine Urobilinogen 2.0 Ur Leukocyte Esterase Negative RPR Titer Hep C Ab Diagnostic <0.1 Liver Fibrosis Interp HIV 1&2 Antibody Screen HIV P24 Antigen 10/16/17 10/16/17 10/16/17 08:50 08:50 10:10 WBC RBC Hgb Hct MCV MCH MCHC RDW Plt Count MPV Sodium 139 Potassium 4.8 Chloride 105 Carbon Dioxide 27 Anion Gap 7 L BUN 16 Creatinine 1.2 Creat Clearance w eGFR > 60 Random Glucose 120 H D Calcium 9.1 Total Bilirubin 0.2 D AST 19 ALT 28 D Alkaline Phosphatase 74 Total Protein 7.0 Albumin 3.5 Urine Color Urine Appearance Urine pH Ur Specific [place] Urine Protein Urine Glucose (UA) Urine Ketones Urine Blood Urine Nitrite Urine Bilirubin Urine Urobilinogen Ur Leukocyte Esterase RPR Titer Nonreactive Hep C Ab Diagnostic Liver Fibrosis Interp HIV 1&2 Antibody Screen Negative HIV P24 Antigen Negative LABS NOTED. Assessment: 10/17/17 15:42 WITHDRAWAL SYMPTOMS. Plan: CONTINUE DETOX. INCREASE DAILY PO FLUID INTAKE. PRN IMMODIUM FOR DIARRHEA.
[2017-10-17] MEDS ORDERED: chlordiazePOXIDE 5 MG CAPSULE PO SCH (17:00)
[2017-10-17] MEDS: SENNOSIDES 8.6MG TABLET (FP) PO SCH (21:52)
[2017-10-17] MEDS: THIAMINE HCL 100 MG TABLET (FP) PO SCH (21:52)
[2017-10-17] MEDS: MELATONIN 5 MG TABLETS PO PRN (21:53)
[2017-10-18] MEDS: DOCUSATE SODIUM 100 MG CAPSULE (FP) PO SCH ×4 (07:42→22:07)
[2017-10-18] MEDS: NICOTINE 21 MG/24 HOURS TOPICAL PATCH TD SCH (10:03)
[2017-10-18] MEDS: PRENATAL VITAMINS W/ FOLIC ACID TABLET (FP) PO SCH (10:03)
[2017-10-18] MEDS: diazePAM 5 MG TABLET PO PRN ×2 (10:03→22:07)
[2017-10-18] MEDS: METHADONE HCL 5 MG TABLET (FOR DETOX USE ONLY) PO SCH (10:03)
[2017-10-18] MEDS ORDERED: COLLOIDAL OATMEAL 1 BAR EACH TP PRN (12:53)
[2017-10-18] MEDS ORDERED: chlordiazePOXIDE HCL 10 MG CAPSULE PO SCH (17:00)
--- NOTE | 2017-10-18 20:47 | PN ---
B[facility] Progress Note (SOAP) Subjective: Fatigue, Stomach Cramping, Nausea. Patient reports that withdrawal symptoms are improving in general. Objective: PATIENT A & O X 3, OBSERVED AMBULATING ON UNIT. NO ACUTE DISTRESS. 10/18/17 20:49 Vital Signs Temperature 97.7 F 10/18/17 17:41 Pulse Rate 61 10/18/17 17:41 Respiratory Rate 16 10/18/17 17:41 Blood Pressure 108/64 10/18/17 17:41 O2 Sat by Pulse Oximetry (%) Laboratory Tests 10/15/17 10/15/17 10/16/17 11:30 18:02 08:50 WBC 9.4 RBC 4.18 Hgb 13.3 Hct 39.4 MCV 94.3 MCH 31.9 MCHC 33.8 RDW 13.1 Plt Count 317 MPV 7.8 Sodium Potassium Chloride Carbon Dioxide Anion Gap BUN Creatinine Creat Clearance w eGFR Random Glucose Calcium Total Bilirubin AST ALT Alkaline Phosphatase Total Protein Albumin Urine Color Yellow Urine Appearance Clear Urine pH 6.0 Ur Specific [place] 1.026 Urine Protein Negative Urine Glucose (UA) Negative Urine Ketones Negative Urine Blood Negative Urine Nitrite Negative Urine Bilirubin Negative Urine Urobilinogen 2.0 Ur Leukocyte Esterase Negative RPR Titer Hep C Ab Diagnostic <0.1 Liver Fibrosis Interp HIV 1&2 Antibody Screen HIV P24 Antigen 10/16/17 10/16/17 10/16/17 08:50 08:50 10:10 WBC RBC Hgb Hct MCV MCH MCHC RDW Plt Count MPV Sodium 139 Potassium 4.8 Chloride 105 Carbon Dioxide 27 Anion Gap 7 L BUN 16 Creatinine 1.2 Creat Clearance w eGFR > 60 Random Glucose 120 H D Calcium 9.1 Total Bilirubin 0.2 D AST 19 ALT 28 D Alkaline Phosphatase 74 Total Protein 7.0 Albumin 3.5 Urine Color Urine Appearance Urine pH Ur Specific [place] Urine Protein Urine Glucose (UA) Urine Ketones Urine Blood Urine Nitrite Urine Bilirubin Urine Urobilinogen Ur Leukocyte Esterase RPR Titer Nonreactive Hep C Ab Diagnostic Liver Fibrosis Interp HIV 1&2 Antibody Screen Negative HIV P24 Antigen Negative LABS NOTED. Assessment: 10/18/17 20:49 WITHDRAWAL SYMPTOMS. Plan: CONTINUE DETOX.
[2017-10-18] MEDS: THIAMINE HCL 100 MG TABLET (FP) PO SCH (22:07)
[2017-10-18] MEDS: SENNOSIDES 8.6MG TABLET (FP) PO SCH (22:07)
[2017-10-18] MEDS: MELATONIN 5 MG TABLETS PO PRN (22:09)
[2017-10-19] MEDS: DOCUSATE SODIUM 100 MG CAPSULE (FP) PO SCH ×3 (06:12→22:38)
[2017-10-19] MEDS ORDERED: METHADONE HCL 10 MG TABLET (FOR DETOX USE ONLY) PO SCH (10:00)
[2017-10-19] MEDS: PRENATAL VITAMINS W/ FOLIC ACID TABLET (FP) PO SCH (10:31)
[2017-10-19] MEDS: NICOTINE 21 MG/24 HOURS TOPICAL PATCH TD SCH (10:32)
[2017-10-19] MEDS: SELENIUM SULFIDE 2.5% LOTION 4 OZ. TP SCH (10:32)
--- NOTE | 2017-10-19 12:31 | PN ---
[facility] Progress Note Note: interrupted sleep, body aches, joint pain, chills Vital Signs Temperature 96.9 F L 10/19/17 09:05 Pulse Rate 56 L 10/19/17 09:05 Respiratory Rate 20 10/19/17 09:05 Blood Pressure 112/67 10/19/17 09:05 O2 Sat by Pulse Oximetry (%) Laboratory Last Values WBC 9.4 K/mm3 (4.0-10.0) 10/16/17 08:50 RBC 4.18 M/mm3 (4.00-5.60) 10/16/17 08:50 Hgb 13.3 GM/dL (11.7-16.9) 10/16/17 08:50 Hct 39.4 % (35.4-49) 10/16/17 08:50 MCV 94.3 fl (80-96) 10/16/17 08:50 MCH 31.9 pg (25.7-33.7) 10/16/17 08:50 MCHC 33.8 g/dl (32.0-35.9) 10/16/17 08:50 RDW 13.1 % (11.9-15.9) 10/16/17 08:50 Plt Count 317 K/MM3 (134-434) 10/16/17 08:50 MPV 7.8 fl (7.5-11.1) 10/16/17 08:50 Sodium 139 mmol/L (136-145) 10/16/17 08:50 Potassium 4.8 mmol/L (3.5-5.1) 10/16/17 08:50 Chloride 105 mmol/L (98-107) 10/16/17 08:50 Carbon Dioxide 27 mmol/L (21-32) 10/16/17 08:50 Anion Gap 7 (8-16) L 10/16/17 08:50 BUN 16 mg/dL (7-18) 10/16/17 08:50 Creatinine 1.2 mg/dL (0.7-1.3) 10/16/17 08:50 Creat Clearance w eGFR > 60 (>60) 10/16/17 08:50 Random Glucose 120 mg/dL (74-106) H D 10/16/17 08:50 Calcium 9.1 mg/dL (8.5-10.1) 10/16/17 08:50 Total Bilirubin 0.2 mg/dL (0.2-1.0) D 10/16/17 08:50 AST 19 U/L (15-37) 10/16/17 08:50 ALT 28 U/L (12-78) D 10/16/17 08:50 Alkaline Phosphatase 74 U/L (45-117) 10/16/17 08:50 Total Protein 7.0 g/dl (6.4-8.2) 10/16/17 08:50 Albumin 3.5 g/dl (3.4-5.0) 10/16/17 08:50 Urine Color Yellow 10/15/17 18:02 Urine Appearance Clear 10/15/17 18:02 Urine pH 6.0 (5.0-8.0) 10/15/17 18:02 Ur Specific [place] 1.026 (1.001-1.035) 10/15/17 18:02 Urine Protein Negative (NEGATIVE) 10/15/17 18:02 Urine Glucose (UA) Negative (NEGATIVE) 10/15/17 18:02 Urine Ketones Negative (NEGATIVE) 10/15/17 18:02 Urine Blood Negative (NEGATIVE) 10/15/17 18:02 Urine Nitrite Negative (NEGATIVE) 10/15/17 18:02 Urine Bilirubin Negative (<2.0 mg/dL) 10/15/17 18:02 Urine Urobilinogen 2.0 mg/dL (0.2-1.0) 10/15/17 18:02 Ur Leukocyte Esterase Negative (NEGATIVE) 10/15/17 18:02 RPR Titer Nonreactive (NONREACTIVE) 10/16/17 08:50 Hep C Ab Diagnostic <0.1 s/co ratio (0.0-0.9) 10/15/17 11:30 Liver Fibrosis Interp (.) 10/15/17 11:30 HIV 1&2 Antibody Screen Negative 10/16/17 10:10 HIV P24 Antigen Negative 10/16/17 10:10 AOx3 no distress no adventitious breath sounds full ROM ambulating in the unit withdrawal symptoms Continue detox increase fluids continue to monitor
[2017-10-19] MEDS ORDERED: CYCLOBENZAPRINE HCL 10 MG TABLET (FP) PO PRN (21:03)
[2017-10-19] MEDS ORDERED: LIDOCAINE PATCH REMOVAL MC SCH (22:00)
[2017-10-19] MEDS: MELATONIN 5 MG TABLETS PO PRN (22:07)
[2017-10-19] MEDS: THIAMINE HCL 100 MG TABLET (FP) PO SCH (22:07)
[2017-10-19] MEDS: SENNOSIDES 8.6MG TABLET (FP) PO SCH (22:39)
[2017-10-20] MEDS ORDERED: METHADONE HCL 5 MG TABLET (FOR DETOX USE ONLY) PO SCH (06:00)
[2017-10-20] MEDS: DOCUSATE SODIUM 100 MG CAPSULE (FP) PO SCH (07:59)
[2017-10-20 09:03] VITALS: BP 107/70; PULSE 61; TEMP 97.8
--- NOTE | 2017-10-20 09:06 | PN ---
[facility] Progress Note (SOAP) Subjective: DETOX COMPLETED. ALERT O X 3. NAD. Objective: 10/20/17 09:30 Vital Signs 10/20/17 10/20/17 10/20/17 03:30 06:18 09:02 Temperature 96.7 F L 97.8 F Pulse Rate 65 61 Respiratory 18 16 16 Rate Blood Pressure 109/61 107/70 Laboratory Tests 10/15/17 10/15/17 10/16/17 11:30 18:02 08:50 WBC 9.4 RBC 4.18 Hgb 13.3 Hct 39.4 MCV 94.3 MCH 31.9 MCHC 33.8 RDW 13.1 Plt Count 317 MPV 7.8 Sodium Potassium Chloride Carbon Dioxide Anion Gap BUN Creatinine Creat Clearance w eGFR Random Glucose Calcium Total Bilirubin AST ALT Alkaline Phosphatase Total Protein Albumin Urine Color Yellow Urine Appearance Clear Urine pH 6.0 Ur Specific [place] 1.026 Urine Protein Negative Urine Glucose (UA) Negative Urine Ketones Negative Urine Blood Negative Urine Nitrite Negative Urine Bilirubin Negative Urine Urobilinogen 2.0 Ur Leukocyte Esterase Negative RPR Titer Hep C Ab Diagnostic <0.1 Liver Fibrosis Interp HIV 1&2 Antibody Screen HIV P24 Antigen 10/16/17 10/16/17 10/16/17 08:50 08:50 10:10 WBC RBC Hgb Hct MCV MCH MCHC RDW Plt Count MPV Sodium 139 Potassium 4.8 Chloride 105 Carbon Dioxide 27 Anion Gap 7 L BUN 16 Creatinine 1.2 Creat Clearance w eGFR > 60 Random Glucose 120 H D Calcium 9.1 Total Bilirubin 0.2 D AST 19 ALT 28 D Alkaline Phosphatase 74 Total Protein 7.0 Albumin 3.5 Urine Color Urine Appearance Urine pH Ur Specific [place] Urine Protein Urine Glucose (UA) Urine Ketones Urine Blood Urine Nitrite Urine Bilirubin Urine Urobilinogen Ur Leukocyte Esterase RPR Titer Nonreactive Hep C Ab Diagnostic Liver Fibrosis Interp HIV 1&2 Antibody Screen Negative HIV P24 Antigen Negative Assessment: 10/20/17 09:31 MEDICALLY STABLE Plan: D/C PT TODAY
--- NOTE | 2017-10-20 09:43 | DS ---
[facility] Detox Discharge Summary Admission Date: 10/15/17 Discharge Date: 10/20/17 - History Present History: Cocaine Dependence, Opioid Dependence Additional Comments: DETOX TX COMPLETED. [facility]. Pertinent Past History: PLEASE SEE DX BELOW - Physical Exam Results Vital Signs: Vital Signs Temperature 97.8 F 10/20/17 09:02 Pulse Rate 61 10/20/17 09:02 Respiratory Rate 16 10/20/17 09:02 Blood Pressure 107/70 10/20/17 09:02 O2 Sat by Pulse Oximetry (%) Pertinent Admission Physical Exam Findings: WITHDRAWAL SX Vital Signs 10/20/17 10/20/17 10/20/17 03:30 06:18 09:02 Temperature 96.7 F L 97.8 F Pulse Rate 65 61 Respiratory 18 16 16 Rate Blood Pressure 109/61 107/70 Vital Signs - 24 hr 10/19/17 10/19/17 10/19/17 13:43 17:17 21:15 Temperature 97.1 F L 99.0 F 98.2 F Pulse Rate 60 64 71 Respiratory 18 18 16 Rate Blood Pressure 132/80 102/60 121/76 10/20/17 10/20/17 10/20/17 00:30 03:30 06:18 Temperature 96.7 F L Pulse Rate 65 Respiratory 18 18 16 Rate Blood Pressure 109/61 10/20/17 09:02 Temperature 97.8 F Pulse Rate 61 Respiratory 16 Rate Blood Pressure 107/70 Laboratory Tests 10/15/17 10/15/17 10/16/17 11:30 18:02 08:50 WBC 9.4 RBC 4.18 Hgb 13.3 Hct 39.4 MCV 94.3 MCH 31.9 MCHC 33.8 RDW 13.1 Plt Count 317 MPV 7.8 Sodium Potassium Chloride Carbon Dioxide Anion Gap BUN Creatinine Creat Clearance w eGFR Random Glucose Calcium Total Bilirubin AST ALT Alkaline Phosphatase Total Protein Albumin Urine Color Yellow Urine Appearance Clear Urine pH 6.0 Ur Specific [place] 1.026 Urine Protein Negative Urine Glucose (UA) Negative Urine Ketones Negative Urine Blood Negative Urine Nitrite Negative Urine Bilirubin Negative Urine Urobilinogen 2.0 Ur Leukocyte Esterase Negative RPR Titer Hep C Ab Diagnostic <0.1 Liver Fibrosis Interp HIV 1&2 Antibody Screen HIV P24 Antigen 10/16/17 10/16/17 10/16/17 08:50 08:50 10:10 WBC RBC Hgb Hct MCV MCH MCHC RDW Plt Count MPV Sodium 139 Potassium 4.8 Chloride 105 Carbon Dioxide 27 Anion Gap 7 L BUN 16 Creatinine 1.2 Creat Clearance w eGFR > 60 Random Glucose 120 H D Calcium 9.1 Total Bilirubin 0.2 D AST 19 ALT 28 D Alkaline Phosphatase 74 Total Protein 7.0 Albumin 3.5 Urine Color Urine Appearance Urine pH Ur Specific [place] Urine Protein Urine Glucose (UA) Urine Ketones Urine Blood Urine Nitrite Urine Bilirubin Urine Urobilinogen Ur Leukocyte Esterase RPR Titer Nonreactive Hep C Ab Diagnostic Liver Fibrosis Interp HIV 1&2 Antibody Screen Negative HIV P24 Antigen Negative - Treatment Hospital Course: Detox Protocol Followed, Detoxed Safely, Responded well, Discharged Condition Good, Rehab Referral Accepted Patient has Accepted a Rehab Referral to: [facility] - Medication Discharge Medications: Ambulatory Orders Albuterol Sulfate Inhaler - [Ventolin Hfa Inhaler -] 2 inh PO Q4H PRN 11/22/16 Quetiapine Fumarate [Seroquel -] 50 mg PO HS #30 tablet 11/23/16 Quetiapine Fumarate [Seroquel -] 50 mg PO HS #30 tablet 10/15/17 - Diagnosis (1) Nicotine dependence Current Visit: Yes Status: Acute Qualifiers: Nicotine product type: cigarettes Substance use status: in withdrawal Qualified Code(s): F17.213 - Nicotine dependence, cigarettes, with withdrawal (2) Opioid dependence with withdrawal Current Visit: Yes Status: Acute (3) Weight loss Current Visit: Yes Status: Acute (4) Asthma Current Visit: Yes Status: Chronic Qualifiers: Asthma severity: mild Asthma persistence: intermittent Asthma complication type: uncomplicated Qualified Code(s): J45.20 - Mild intermittent asthma, uncomplicated (5) Cocaine dependence Current Visit: Yes Status: Acute Qualifiers: Substance use status: uncomplicated Qualified Code(s): F14.20 - Cocaine dependence, uncomplicated - AMA Did Patient Leave Against Medical Advice: No
[2017-10-20] MEDS ORDERED: LIDOCAINE 5% TOPICAL PATCH TP SCH (10:00)
[2017-10-20] MEDS: PRENATAL VITAMINS W/ FOLIC ACID TABLET (FP) PO SCH (10:13)
[2017-10-20] MEDS: NICOTINE 21 MG/24 HOURS TOPICAL PATCH TD SCH (10:13)
[2017-10-20] MEDS: SELENIUM SULFIDE 2.5% LOTION 4 OZ. TP SCH (10:14)
== END 2017-10-20 11:20 | disposition home or self-care (01) | DRG 897 ==
LOC: YASAS 12:58 → Y3N 14:51
PROVIDERS: ADMIT Family Medicine Addiction Medicine; ATTEND Family Medicine Addiction Medicine
PROC: HZ2ZZZZ Detoxification Services for Substance Abuse Treatment (ICD-10-PCS; principal; 2017-10-15)
DX: F11.23 Opioid dependence with withdrawal (principal); F14.20 Cocaine dependence, uncomplicated; F17.213 Nicotine dependence, cigarettes, with withdrawal; J45.20 Mild intermittent asthma, uncomplicated; K59.01 Slow transit constipation; Z87.898 Personal history of other specified conditions
CPT/HCPCS: 36415; 80053; 81003; 85027; 86593; 87389; 93005; 93010

== ENCOUNTER 2019-12-09 09:44 | Inpatient (IN) | payer OTHER ==
--- NOTE | 2019-12-09 10:02 | BHS.RME ---
Substance Use & Tx History - Substance Use History Heroin Substance amount: 2 bundles Frequency of use: Daily Substance route: Inhalation (ex: sniffing or snorting) Date of Last Use: 12/08/19 (First use age 17. No Od. Has Narcan at home) Cocaine-Crack Substance amount: $200-300 Frequency of use: Daily Substance route: Smoking Date of Last Use: 12/08/19 (First use age 23 y) Nicotine Substance amount: 2 packs Frequency of use: Daily Substance route: Smoking Date of Last Use: 12/09/19 (First use age 17 y) - Last Treatment Date of last treatment: October 2017 Where was last treatment: Detox Physical/Psych/Mental Status - Behavior General Behavior: Increased activity (restlessness, agitation) Eye Contact: Normal - Cooperativeness Cooperativeness: Cooperative - Thinking Thought Processes: Tight Thought content: Future oriented - Physical Health Problems Is patient presently having any pain?: No Does patient presently have any injuries (include location): No Does patient currently have a fever: No COWS - Scale Resting Pulse: 0= [place] 80 or Below Sweatin= No chills or Flushing Restless Observation: 1= Difficult to Sit Still Pupil Size: 0= Normal to Room Light Bone or Joint Aches: 1= Mild Discomfort Runny Nose/ Eye Tearin= Runny Nose/Eyes GI Upset > 30mins: 1= Stomach Cramp Tremor Observation: 0= None Yawning Observation: 0= None Anxiety or Irritability: 2=Irritable/Anxious Goose Flesh Skin: 0=Smooth Skin COWS Score: 7
--- NOTE | 2019-12-09 10:36 | HP ---
COWS - Scale Resting Pulse: 0= [place] 80 or Below Sweatin= Chills/Flushing Restless Observation: 3= Extraneous Movement Pupil Size: 1= Pupils >than Normal Bone or Joint Aches: 1= Mild Discomfort Runny Nose/ Eye Tearin= Runny Nose/Eyes GI Upset > 30mins: 2= Nausea/Diarrhea Tremor Observation: 0= None Yawning Observation: 0= None Anxiety or Irritability: 2=Irritable/Anxious Goose Flesh Skin: 0=Smooth Skin COWS Score: 12 CIWA Score - Admission Criteria OASAS Guidelines: Admission for Medically Managed Detox: Requires at least one of the followin. CIWA greater than 12 2. Seizures within the past 24 hours 3. Delirium tremens within the past 24 hours 4. Hallucinations within the past 24 hours 5. Acute intervention needed for co occurring medical disorder 6. Acute intervention needed for co occurring psychiatric disorder 7. Severe withdrawal that cannot be handled at a lower level of care (continued vomiting, continued diarrhea, abnormal vital signs) requiring intravenous medication and/or fluids 8. Admitting History and Physical - Admission Chief Complaint: " I want to stop using drugs." History of Present Illness: 59 year old male with history of opioid depen dence with early withdrawal, cocaine use disorder, nicotine dependence. He was last at [facility] 10/15-10/20/17 when he completed detox referred to rehab - [facility], then relapsed 8 months after rehab. Substance Use & Tx History - Substance Use History Heroin Substance amount: 2 bundles Frequency of use: Daily Substance route: Inhalation (ex: sniffing or snorting) Date of Last Use: 12/08/19 (First use age 17. No Od. Has Narcan at home) Cocaine-Crack Substance amount: $200-300 Frequency of use: Daily Substance route: Smoking Date of Last Use: 12/08/19 (First use age 23 y) Nicotine Substance amount: 2 packs Frequency of use: Daily Substance route: Smoking Date of Last Use: 12/09/19 (First use age 17 y) - Last Treatment Date of last treatment: October 2017 Where was last treatment: Detox Urine TOX: + for laurel, fen, mop, bup, mdma PMH: Asthma Psurg: None Psych: None Owns own place in [place] . He meets criteria due to high risk for relapse. COWS=7 due to having used prior to coming in for detox. However reassessed COWS one hour later=12 History Source: Patient Limitations to Obtaining History: No Limitations - Past Surgical History Past Surgical History: Yes: None - Smoking History Smoking history: Current every day smoker Have you smoked in the past 12 months: Yes Aproximately how many cigarettes per day: 20 - Alcohol/Substance Use Hx Alcohol Use: No History of Substance Use: reports: Cocaine, Heroin Date of Last Use: 12/08/19 - Social History Usual Living Arrangement: Yes: Alone Do you think of yourself as: Straight/Heterosexual ADL: Independent Occupation: unemployed, truck loader and unloader History of Recent Travel: No Admission ROS [facility] Allergies/Adverse Reactions: Allergies Allergy/AdvReac Type Severity Reaction Status Date / Time No Known Allergies Allergy Verified 10/15/17 13:52 Exam Limitations: No Limitations - Ebola screening Have you traveled outside of the country in the last 21 days: No Have you had contact with anyone from an Ebola affected area: No Have you been sick,other than usual withdrawal symptoms: No Do you have a fever: No - Review of Systems Constitutional: Chills, Diaphoresis, Unintentional Wgt. Loss EENT: reports: No Symptoms Reported Respiratory: reports: No Symptoms reported Cardiac: reports: No Symptoms Reported GI: reports: No Symptoms Reported, Nausea : reports: No Symptoms Reported Musculoskeletal: reports: No Symptoms Reported Integumentary: reports: No Symptoms Reported Neuro: reports: No Symptoms reported Patient History - Patient Medical History Hx Anemia: No Hx Asthma: Yes (on albuterol inhaler) Hx Chronic Obstructive Pulmonary Disease (COPD): No Hx Cancer: No Hx Cardiac Disorders: No Hx Congestive Heart Failure: No Hx Hypertension: No Hx Hypercholesterolemia: No Hx Pacemaker: No HX Cerebrovascular Accident: No Hx Seizures: No Hx Dementia: No Hx Diabetes: No Hx Gastrointestinal Disorders: No Hx Liver Disease: No Hx Genitourinary Disorders: No Hx Sexually Transmitted Disorders: No Hx Renal Disease (ESRD): No Hx Thyroid Disease: No Hx Human Immunodeficiency Virus (HIV): No (last 2015) Hx Hepatitis C: No Hx Depression: Yes Hx Suicide Attempt: No Hx Bipolar Disorder: No Hx Schizophrenia: No - Patient Surgical History Past Surgical History: Yes Hx Neurologic Surgery: No Hx Cataract Extraction: No Hx Cardiac Surgery: No Hx Lung Surgery: No Hx Breast Surgery: No Hx Breast Biopsy: No Hx Abdominal Surgery: No Hx Appendectomy: No Hx Cholecystectomy: No Hx Genitourinary Surgery: No Hx Section: No Hx Orthopedic Surgery: Yes (dislocation, left rotator cuff in 2007) Anesthesia Reaction: No (right foot 08/2017) - PPD History Date: 11/24/16 Results: 0 mm - Smoking Cessation Smoking history: Current every day smoker Have you smoked in the past 12 months: Yes Aproximately how many cigarettes per day: 20 Cigars Per Day: 0 Hx Chewing Tobacco Use: No Initiated information on smoking cessation: Yes 'Breaking Loose' booklet given: 12/09/19 - Substances abused Heroin Substance route: Inhalation Frequency: Daily Amount used: 2 bundles Age of first use: 17 Date of last use: 12/08/19 Crack Substance route: Smoking Frequency: Daily Amount used: $200-300 Age of first use: 26 Date of last use: 12/08/19 Admission Physical Exam S - Physical General Appearance: Yes: Moderate Distress, Thin, Tremorous, Irritable, Sweating, Anxious HEENTM: Yes: EOMI, Hearing grossly Normal, Normal ENT Inspection, Normocephalic, Normal Voice, SHERI, Pharynx Normal, Tm's normal Respiratory: Yes: Chest Non-Tender, Lungs Clear, Normal Breath Sounds, No Respiratory Distress, No Accessory Muscle Use Neck: Yes: No masses,lesions,Nodules, Supple, Trachea in good position Breast: Yes: Breast Exam Deferred Cardiology: Yes: Regular Rhythm, Regular Rate, S1, S2 Abdominal: Yes: Normal Bowel Sounds, Non Tender, Flat, Soft Genitourinary: Yes: Within Normal Limits Back: Yes: Normal Inspection Musculoskeletal: Yes: full range of Motion, Gait Steady, Pelvis Stable Extremities: Yes: Normal Capillary Refill, Normal Inspection, Normal Range of Motion, Non-Tender Neurological: Yes: food vendor II-XII NML intact, Fully Oriented, Alert, Motor Strength 5/5, Normal Mood/Affect, Normal Response Integumentary: Yes: Normal Color, Dry, Warm Lymphatic: Yes: Within Normal Limits - Diagnostic (1) Anxiety and depression Current Visit: Yes Status: Acute (2) Cocaine dependence Current Visit: Yes Status: Acute Qualifiers: Substance use status: uncomplicated Qualified Code(s): F14.20 - Cocaine dependence, uncomplicated (3) Insomnia Current Visit: Yes Status: Acute (4) Opioid dependence with withdrawal Current Visit: Yes Status: Acute (5) Substance induced mood disorder Current Visit: Yes Status: Acute (6) Weight loss Current Visit: Yes Status: Acute (7) Asthma Current Visit: Yes Status: Chronic Qualifiers: Asthma severity: mild Asthma persistence: intermittent Asthma complication type: uncomplicated Qualified Code(s): J45.20 - Mild intermittent asthma, uncomplicated Cleared for Admission [facility] - Detox or Rehab [facility] Level of Care: Medically Managed Detox Regimen/Protocol: Methadone Claeared for Rehab Admission: No Screened but not Admitted - Documentation of Visit Screened but not Admitted: No Breathalyzer - Breathalyzer Breathalyzer: 0 Vital Signs - Vital Signs Vital signs refused: No Temperature: 9.3 F Temperature source: Oral Pulse Rate: 56 Respiratory Rate: 16 Blood Pressure: 136/75 BP Location: Left Arm Blood Pressure position: Sitting - Height Height: 5 ft 9 in - Weight Weight: 185 lb Weight measurement method: Stated by patient - BMI Body Mass Index (BMI): 27.3 - Bowel Function Bowel Movement: Yes Urine Drug Screen - Test Device Lot number: [id number] Expiration date: 12/06/21 - Control Is test valid?: Yes - Results Drug screen NEGATIVE: No Urine drug screen results: LAUREL-Cocaine, FEN-Fentanyl, MOP-Opiates, MDMA-Ecstasy, BUP-Suboxone Inpatient Rehab Admission - Rehab Decision to Admit Inpatient rehab admission?: No
[2019-12-09 10:47] VITALS: BMI 27.3
[2019-12-09] MEDS ORDERED: METHADONE HCL 10 MG TABLET (FOR DETOX USE ONLY) PO ONE (10:47)
[2019-12-09] MEDS ORDERED: ONDANSETRON *ODT* 4 MG TABLET SL ONE (10:47)
[2019-12-09] MEDS ORDERED: IBUPROFEN 400 MG TABLET (FP) PO PRN (10:47)
[2019-12-09] MEDS ORDERED: ACETAMINOPHEN 325 MG TABLET (FP) PO PRN ×2 (10:47)
[2019-12-09] MEDS ORDERED: BISMUTH SUBSALICYLATE 262 MG/15 ML BTL PO PRN (10:47)
[2019-12-09] MEDS ORDERED: MAGNESIUM CITRATE 300 ML BOTTLE PO PRN (10:47)
[2019-12-09] MEDS ORDERED: METHOCARBAMOL 500 MG TABLET PO PRN (10:47)
[2019-12-09] MEDS ORDERED: MENTHOL/PHENOL 1 EACH UD MM PRN (10:47)
[2019-12-09] MEDS ORDERED: MAG HYDROX/AL HYDROX/SIMETH 30 ML UNIT-DOSE CUP PO PRN (10:47)
[2019-12-09] MEDS ORDERED: NICOTINE POLACRILEX 2 MG GUM BUC PRN (10:47)
[2019-12-09] MEDS ORDERED: MAGNESIUM HYDROX 2400MG/30ML ORAL SUSPENSION 30 ML CUP PO PRN (10:47)
[2019-12-09] MEDS ORDERED: METHADONE HCL 10 MG TABLET PO ONE (10:50)
[2019-12-09] MEDS: ALBUTEROL SO4 HFA INHALER IH PRN ×2 (11:40→21:39)
[2019-12-09] MEDS ORDERED: ALBUTEROL SO4 0.083% IH SOL 2.5 MG/3 ML VIAL.NEB. NEB ONE (11:40)
[2019-12-09] MEDS: NICOTINE 7 MG/24 HOURS TOPICAL PATCH TD SCH (12:40)
[2019-12-09] MEDS: PRENATAL VITAMINS W/ FOLIC ACID TABLET (FP) PO SCH (12:40)
[2019-12-09 13:10] LABS: HEMATOCRIT 40.7 % (35.4-49); HEMOGLOBIN 13.7 GM/dL (11.7-16.9); MCHC 33.6 g/dl (32.0-35.9); MEAN CELL VOLUME 92.4 fl (80-96); MEAN PLT VOLUME 7.6 fl (7.5-11.1); PLATELET COUNT 365 K/MM3 (134-434); RBC 4.41 M/mm3 (4.00-5.60); RDW 13.3 % (11.9-15.9); WHITE BLOOD COUNT 10.3 K/mm3 (4.0-10.0)
[2019-12-09 13:34] LABS: ALBUMIN 3.6 g/dl (3.4-5.0); BILIRUBIN,TOTAL 0.2 mg/dL (0.2-1); BLOOD UREA NITROGEN 18.2 mg/dL (7-18); CALCIUM 9.1 mg/dL (8.5-10.1); POTASSIUM 4.4 mmol/L (3.5-5.1)
[2019-12-09 13:46] LABS: CREATININE 1.2 mg/dL (0.55-1.3); TOT PROT 7.4 g/dl (6.4-8.2)
[2019-12-09] MEDS ORDERED: hydrOXYzine PAMOATE 25 MG CAPSULE (FP) PO SCH (14:00)
[2019-12-09] MEDS ORDERED: ONDANSETRON *ODT* 4 MG TABLET SL PRN (14:19)
[2019-12-09] MEDS: MELATONIN 5 MG TABLETS PO SCH (22:38)
[2019-12-09] MEDS: THIAMINE HCL 100 MG TABLET (FP) PO SCH (22:38)
[2019-12-10] MEDS: cloNIDine HCL 0.1 MG TABLET PO PRN ×2 (01:51→22:31)
[2019-12-10] MEDS: hydrOXYzine PAMOATE 25 MG CAPSULE (FP) PO PRN (01:51)
[2019-12-10] MEDS ORDERED: ALBUTEROL SO4 2.5/IPRATROPIUM 0.5 INH SOL 3 ML VIAL.NEB. NEB ONE (02:24)
--- NOTE | 2019-12-10 03:33 | PN ---
[facility] Progress Note Note: Patient complains of shortness of breath and wheezing Vital Signs Temperature 96.9 F L 12/10/19 01:46 Pulse Rate 76 12/10/19 01:46 Respiratory Rate 20 12/10/19 01:46 Blood Pressure 142/88 12/10/19 01:46 O2 Sat by Pulse Oximetry (%) 100 12/10/19 01:46 Action: Albuterol 2.5/Ipratropium 1.5 (Duoneb) 1 amp nebulizer ordered
[2019-12-10] MEDS ORDERED: METHADONE HCL 10 MG TABLET (FOR DETOX USE ONLY) ONE (09:02)
[2019-12-10] MEDS ORDERED: METHADONE HCL 5 MG TABLET (FOR DETOX USE ONLY) ONE (09:02)
[2019-12-10] MEDS ORDERED: METHADONE (DETOX) 20 MG, METHADONE (DETOX) 5 MG PO ONE (10:00)
[2019-12-10] MEDS: NICOTINE 7 MG/24 HOURS TOPICAL PATCH TD SCH (10:48)
[2019-12-10] MEDS: PRENATAL VITAMINS W/ FOLIC ACID TABLET (FP) PO SCH (10:48)
--- NOTE | 2019-12-10 11:05 | PN ---
BHS Progress Note (SOAP) Subjective: body aches sweats shakes interrupted sleep agitation restless muscle cramping Objective: 12/10/19 11:03 Vital Signs Temperature 97.3 F L 12/10/19 05:44 Pulse Rate 59 L 12/10/19 05:44 Respiratory Rate 20 12/10/19 05:44 Blood Pressure 151/79 12/10/19 05:44 O2 Sat by Pulse Oximetry (%) 97 12/10/19 05:44 Laboratory Tests 12/09/19 12/09/19 12/09/19 10:35 10:35 10:35 WBC 10.3 H RBC 4.41 Hgb 13.7 Hct 40.7 MCV 92.4 MCH 31.0 MCHC 33.6 RDW 13.3 Plt Count 365 MPV 7.6 Sodium 138 Potassium 4.4 Chloride 103 Carbon Dioxide 33 H Anion Gap 2 L BUN 18.2 H Creatinine 1.2 Est GFR (CKD-EPI)AfAm 77.33 Est GFR (CKD-EPI)NonAf 66.72 Random Glucose 98 Calcium 9.1 Total Bilirubin 0.2 AST 19 ALT 17 Alkaline Phosphatase 77 Total Protein 7.4 Albumin 3.6 Syphilis Serology Non-reactive aaox3 ambulating no acute distress Assessment: 12/10/19 11:04 withdrawals Plan: continue detox valium 10mg q4hrs x 3 days ordered roboxin prn increase fluids
[2019-12-10] MEDS: diazePAM 5 MG TABLET PO PRN (22:31)
[2019-12-10] MEDS: MELATONIN 5 MG TABLETS PO SCH (22:31)
[2019-12-10] MEDS: THIAMINE HCL 100 MG TABLET (FP) PO SCH (22:31)
[2019-12-11] MEDS: hydrOXYzine PAMOATE 25 MG CAPSULE (FP) PO PRN (01:01)
[2019-12-11] MEDS ORDERED: METHADONE HCL 10 MG TABLET (FOR DETOX USE ONLY) PO ONE (10:00)
[2019-12-11] MEDS: PRENATAL VITAMINS W/ FOLIC ACID TABLET (FP) PO SCH (10:53)
--- NOTE | 2019-12-11 11:59 | PN ---
S COWS - Scale Resting Pulse: 0= [place] 80 or Below Sweatin= Chills/Flushing Restless Observation: 1= Difficult to Sit Still Pupil Size: 0= Normal to Room Light Bone or Joint Aches: 2= Severe Diffuse Aches Runny Nose/ Eye Tearin= None GI Upset > 30mins: 0= None Tremor Observation of Outstretched Hands: 2= Slight Tremor Visible Yawning Observation: 0= None Anxiety or Irritability: 2=Irritable/Anxious Goose Flesh Skin: 0=Smooth Skin COWS Score: 8 BHS Progress Note (SOAP) Subjective: Complaints of anxiety, shakes, sweats, tremors and body aches. Objective: 12/11/19 11:56 Vital Signs 12/11/19 12/11/19 05:51 10:40 Temperature 97.3 F L 97.3 F L Pulse Rate 52 L 59 L Respiratory 20 20 Rate Blood Pressure 143/86 144/87 O2 Sat by Pulse 98 98 Oximetry (%) Laboratory Last Values WBC 10.3 K/mm3 (4.0-10.0) H 12/09/19 10:35 RBC 4.41 M/mm3 (4.00-5.60) 12/09/19 10:35 Hgb 13.7 GM/dL (11.7-16.9) 12/09/19 10:35 Hct 40.7 % (35.4-49) 12/09/19 10:35 MCV 92.4 fl (80-96) 12/09/19 10:35 MCH 31.0 pg (25.7-33.7) 12/09/19 10:35 MCHC 33.6 g/dl (32.0-35.9) 12/09/19 10:35 RDW 13.3 % (11.9-15.9) 12/09/19 10:35 Plt Count 365 K/MM3 (134-434) 12/09/19 10:35 MPV 7.6 fl (7.5-11.1) 12/09/19 10:35 Sodium 138 mmol/L (136-145) 12/09/19 10:35 Potassium 4.4 mmol/L (3.5-5.1) 12/09/19 10:35 Chloride 103 mmol/L (98-107) 12/09/19 10:35 Carbon Dioxide 33 mmol/L (21-32) H 12/09/19 10:35 Anion Gap 2 MMOL/L (8-16) L 12/09/19 10:35 BUN 18.2 mg/dL (7-18) H 12/09/19 10:35 Creatinine 1.2 mg/dL (0.55-1.3) 12/09/19 10:35 Est GFR (CKD-EPI)AfAm 77.33 12/09/19 10:35 Est GFR (CKD-EPI)NonAf 66.72 12/09/19 10:35 Random Glucose 98 mg/dL (74-106) 12/09/19 10:35 Calcium 9.1 mg/dL (8.5-10.1) 12/09/19 10:35 Total Bilirubin 0.2 mg/dL (0.2-1) 12/09/19 10:35 AST 19 U/L (15-37) 12/09/19 10:35 ALT 17 U/L (13-61) 12/09/19 10:35 Alkaline Phosphatase 77 U/L (45-117) 12/09/19 10:35 Total Protein 7.4 g/dl (6.4-8.2) 12/09/19 10:35 Albumin 3.6 g/dl (3.4-5.0) 12/09/19 10:35 Syphilis Serology Non-reactive (NONREACTIVE) 12/09/19 10:35 COVID-19 (SHREE) Not detected (Not Detected) 12/09/19 12:30 Labs noted. Assessment: 12/11/19 11:57 Alert and oriented x3, in no acute respiratory distress. Full ROM, ambulating in hallway with assistance. Skin warm to touch with no lesions noted. Withdrawal symptoms. Plan: Continue detox protocol.
[2019-12-11] MEDS: NICOTINE 7 MG/24 HOURS TOPICAL PATCH TD SCH (12:58)
[2019-12-11] MEDS: MELATONIN 5 MG TABLETS PO SCH (22:28)
[2019-12-11] MEDS: THIAMINE HCL 100 MG TABLET (FP) PO SCH (22:28)
[2019-12-11] MEDS: diazePAM 5 MG TABLET PO PRN (22:28)
[2019-12-11] MEDS: cloNIDine HCL 0.1 MG TABLET PO PRN (22:28)
[2019-12-12] MEDS ORDERED: METHADONE HCL 5 MG TABLET (FOR DETOX USE ONLY) ONE (08:54)
[2019-12-12] MEDS ORDERED: METHADONE HCL 10 MG TABLET (FOR DETOX USE ONLY) ONE (08:54)
[2019-12-12] MEDS ORDERED: METHADONE (DETOX) 10 MG, METHADONE (DETOX) 5 MG PO ONE (10:00)
[2019-12-12] MEDS: PRENATAL VITAMINS W/ FOLIC ACID TABLET (FP) PO SCH (10:23)
[2019-12-12] MEDS: NICOTINE 7 MG/24 HOURS TOPICAL PATCH TD SCH (10:23)
[2019-12-12 11:01] VITALS: BP 146/81; PULSE 68; TEMP 97.1
--- NOTE | 2019-12-12 15:00 | DS ---
[facility] Detox Discharge Summary Admission Date: 12/09/19 Discharge Date: 12/12/19 - History Present History: Opioid Dependence - Physical Exam Results Vital Signs: Vital Signs Temperature 97.1 F L 12/12/19 09:50 Pulse Rate 68 12/12/19 09:50 Respiratory Rate 18 12/12/19 09:50 Blood Pressure 146/81 12/12/19 09:50 O2 Sat by Pulse Oximetry (%) 96 12/12/19 09:50 Ambulatory Orders Albuterol Sulfate Inhaler - [Ventolin Hfa Inhaler -] 2 inh PO Q4H PRN 11/22/16 Laboratory Tests 12/09/19 12/09/19 12/09/19 10:35 10:35 10:35 WBC 10.3 H RBC 4.41 Hgb 13.7 Hct 40.7 MCV 92.4 MCH 31.0 MCHC 33.6 RDW 13.3 Plt Count 365 MPV 7.6 Sodium 138 Potassium 4.4 Chloride 103 Carbon Dioxide 33 H Anion Gap 2 L BUN 18.2 H Creatinine 1.2 Est GFR (CKD-EPI)AfAm 77.33 Est GFR (CKD-EPI)NonAf 66.72 Random Glucose 98 Calcium 9.1 Total Bilirubin 0.2 AST 19 ALT 17 Alkaline Phosphatase 77 Total Protein 7.4 Albumin 3.6 Syphilis Serology Non-reactive COVID-19 (SHREE) 12/09/19 12:30 WBC RBC Hgb Hct MCV MCH MCHC RDW Plt Count MPV Sodium Potassium Chloride Carbon Dioxide Anion Gap BUN Creatinine Est GFR (CKD-EPI)AfAm Est GFR (CKD-EPI)NonAf Random Glucose Calcium Total Bilirubin AST ALT Alkaline Phosphatase Total Protein Albumin Syphilis Serology COVID-19 (SHREE) Not detected ROS: DENIES BODY ACHES, CRAVINGS, SWEATS AND SHAKES PE ALERT AND ORIENTED X 3 SKIN WARM AND DRY NECK SUPPLE NO JVD EXT FULL ROM, AMB AD JOHNNY DENIES SI/HI NO TREMORS A/P OPIOD DEPENDENCE PATIENT SIGNED OUT AMA STATING HE HAS TO GO TO [employer] [facility] J[facility]. ENCOURAGED TO STAY IN TREATMENT DUE TO RISK OF RELAPSE BUT PATIENT REFUSED AND CONTINUED TO LEAVE TREATMENT AMA. - Medication Discharge Medications: Ambulatory Orders Albuterol Sulfate Inhaler - [Ventolin Hfa Inhaler -] 2 inh PO Q4H PRN 11/22/16 - AMA Did Patient Leave Against Medical Advice: Yes
[2019-12-13] MEDS ORDERED: METHADONE HCL 10 MG TABLET (FOR DETOX USE ONLY) PO ONE (10:00)
[2019-12-14] MEDS ORDERED: METHADONE HCL 5 MG TABLET (FOR DETOX USE ONLY) PO ONE (06:00)
== END 2019-12-12 13:59 | disposition left against medical advice (07) | DRG 894 ==
LOC: YASAS 09:44 → Y6N 12:04
PROVIDERS: ADMIT Allergy & Immunology; ATTEND Allergy & Immunology
PROC: HZ2ZZZZ Detoxification Services for Substance Abuse Treatment (ICD-10-PCS; principal; 2019-12-09)
DX: F11.23 Opioid dependence with withdrawal (principal); F10.230 Alcohol dependence with withdrawal, uncomplicated; F17.210 Nicotine dependence, cigarettes, uncomplicated; F41.9 Anxiety disorder, unspecified; F32.9 Major depressive disorder, single episode, unspecified; F19.24 Other psychoactive substance dependence with psychoactive substance-induced mood disorder; J45.20 Mild intermittent asthma, uncomplicated; G47.00 Insomnia, unspecified; R63.4 Abnormal weight loss
CPT/HCPCS: 36415; 80053; 85027; 86780; 94640; J0735; U0003